=== PATIENT | female | born 1945 | race Caucasian/White ===

== ENCOUNTER 2023-07-12 12:31 | Outpatient (OUT) | payer MEDICARE, OTHER, SELFPAY ==
[2023-07-12 13:04] LABS: Alanine Aminotransferase 20 U/L (14-59); Albumin Globulin Ratio 0.9; Albumin Level 3.3 g/dL (3.4-5.0); Alkaline Phosphatase 76 U/L (46-116); Anion Gap 17.3; Aspartate Amino Transferase 21 U/L (15-37); BUN Creatinine Ratio 14.7; Bilirubin Total 0.5 mg/dL (0.2-1.0); Calcium 9.3 mg/dL (8.5-10.1); Carbon Dioxide 19.4 mmol/L (21.0-32.0); Chloride 102 mmol/L (98-107); Cholesterol 237 mg/dL (<=200); Estimated GFR (African America 41 (>=60); Estimated GFR (Non-African Ame 34 (>=60); Globulin 3.8 g/dL; Glucose 111 mg/dL (74-106); HDL Cholesterol 59 mg/dL (40-60); Potassium 4.7 mmol/L (3.5-5.1); Sodium 134 mmol/L (136-145); Total Protein 7.1 g/dL (6.4-8.2); Triglycerides 125 mg/dL (<=150)
== END 2023-07-12 12:32 | disposition home or self-care (01) ==
LOC: LAB 12:31
PROVIDERS: Visit Provider Internal Medicine
DX: I25.10 Atherosclerotic heart disease of native coronary artery without angina pectoris (principal); E78.00 Pure hypercholesterolemia, unspecified
CPT/HCPCS: 36415; 80053; 80061

== ENCOUNTER 2023-10-31 20:21 | Emergency (ER) | payer OTHER, MEDICARE, SELFPAY ==
[2023-10-31 20:27] VITALS: BP 164/47; PULSE 67; RESP 20; TEMP 36.8; O2SAT 96; BMI 35.4
--- NOTE | 2023-10-31 20:32 | CT_ITS ---
The [address] [address] Patient Name: BROOKLYN GERARDO MRN: [facility]:[id number] date: 1945 Sex: F Assigned Patient Location: ER Current Patient Location: ER Accession/Order Number: [id number] Exam Date: 10/31/2023 20:45 Report Date: 10/31/2023 21:29 At the request of: JOSHUA DALTON Procedure: CT cervical spine wo con EXAM: CT head/brain wo con, CT cervical spine wo con HISTORY: head injury COMPARISON: Head CT 07/23/2020 TECHNIQUE: Unenhanced axial CT of the head and neck was performed with coronal and sagittal reformats provided. All CT scans at this facility use dose modulation, iterative reconstruction, and/or weight based dosing when appropriate to reduce radiation dose to as low as reasonably achievable. FINDINGS: Head: Sequelae of mild chronic microvascular ischemic disease. No hydrocephalus, midline shift, extra-axial fluid collection or intracranial hemorrhage. Incidental note of intracranial vascular calcification. The mastoids and middle ears are clear. Orbits are intact. Paranasal sinuses are clear. Calvarium, skull base and osseous structures of the imaged face are intact. Scalp soft tissues are preserved. Cervical spine: Craniocervical junction is maintained. Vertebral body heights are preserved. No significant spondylolisthesis. No acute fracture. Multilevel degenerative disc disease throughout the cervical spine there is mild narrowing at C5-C6 secondary to disc osteophyte complex with severe left foraminal narrowing secondary to uncovertebral joint osteophytosis. Paraspinal soft tissues are within normal limits. Lung apices are clear. CT/CT cervical spine wo con IMPRESSION: No acute intracranial process. No acute osseous abnormality of the cervical spine. Electronically authenticated by: ROMMEL NUNES Date: 10/31/2023 21:29
--- NOTE | 2023-10-31 20:32 | ECG_ITS ---
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
--- NOTE | 2023-10-31 20:32 | CT_ITS ---
The [address] [address] Patient Name: BROOKLYN GERARDO MRN: [facility]:[id number] date: 1945 Sex: F Assigned Patient Location: ED.MAIN Current Patient Location: Accession/Order Number: [id number] Exam Date: 10/31/2023 20:45 Report Date: 10/31/2023 21:29 At the request of: JOSHUA DALTON Procedure: CT head/brain wo con EXAM: CT head/brain wo con, CT cervical spine wo con HISTORY: head injury COMPARISON: Head CT 07/23/2020 TECHNIQUE: Unenhanced axial CT of the head and neck was performed with coronal and sagittal reformats provided. All CT scans at this facility use dose modulation, iterative reconstruction, and/or weight based dosing when appropriate to reduce radiation dose to as low as reasonably achievable. FINDINGS: Head: Sequelae of mild chronic microvascular ischemic disease. No hydrocephalus, midline shift, extra-axial fluid collection or intracranial hemorrhage. Incidental note of intracranial vascular calcification. The mastoids and middle ears are clear. Orbits are intact. Paranasal sinuses are clear. Calvarium, skull base and osseous structures of the imaged face are intact. Scalp soft tissues are preserved. Cervical spine: Craniocervical junction is maintained. Vertebral body heights are preserved. No significant spondylolisthesis. No acute fracture. Multilevel degenerative disc disease throughout the cervical spine there is mild narrowing at C5-C6 secondary to disc osteophyte complex with severe left foraminal narrowing secondary to uncovertebral joint osteophytosis. Paraspinal soft tissues are within normal limits. Lung apices are clear. CT/CT head/brain wo con IMPRESSION: No acute intracranial process. No acute osseous abnormality of the cervical spine. Electronically authenticated by: ROMMEL NUNES Date: 10/31/2023 21:29
--- NOTE | 2023-10-31 20:37 | ED.GENADUL1 ---
Documented by User: STACEY Carl 10/31/23 20:46 HPI - General Adult General Chief complaint: Fall Stated complaint: FELL BUMPED HEAD Time Seen by Provider: 10/31/23 20:24 Source: patient Mode of arrival: walk-in Limitations: no limitations History of Present Illness HPI narrative: patient is a 78-year-old female presents to the Emergency Room from work for evaluation of head injury. Patient takes baby aspirin daily. 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 She denies any nausea or vomiting. She denies any visual disturbance. Her chief concern is that she had a head injury in the spring time that resulted in a blood brain bleed which required observation. She's had chronic headaches since. Patient denies any neck pain or loss of consciousness. She denies any chest pain or shortness of breath.sclerae oriented ?4 with a GCS of fifteen, her shift today was to end at 10 pm. Son brought pt to ER from work. Location: Reports head (right parietal) Radiation: Denies non-radiation Severity: mild Quality: Reports aching; Denies burning or stabbing Pain Consistency: Reports constant Treatments prior to arrival: Reports none Related Data Home Medications Medication Instructions Recorded Confirmed aspirin 81 mg tablet,delayed 81 mg PO DAILY 10/31/23 10/31/23 release (Adult Aspirin Regimen) atorvastatin 80 mg tablet 80 mg PO DAILY 10/31/23 10/31/23 ezetimibe 10 mg tablet 10 mg PO DAILY 10/31/23 10/31/23 fluoxetine 20 mg capsule 20 mg PO DAILY 10/31/23 10/31/23 gabapentin 300 mg capsule 300 mg PO Q8H 10/31/23 10/31/23 isosorbide mononitrate 30 mg 30 mg PO DAILY 10/31/23 10/31/23 tablet,extended release 24 hr levothyroxine 50 mcg tablet 50 mcg PO DAILY 10/31/23 10/31/23 (Synthroid) metoprolol succinate 25 mg 25 mg PO DAILY 10/31/23 10/31/23 tablet,extended release 24 hr omeprazole 40 mg capsule,delayed 40 mg PO DAILY 10/31/23 10/31/23 release oxycodone-acetaminophen 5 mg-325 1 tab PO DAILY 10/31/23 10/31/23 mg tablet quetiapine 25 mg tablet 25 mg PO DAILY 10/31/23 10/31/23 Allergies Allergy/AdvReac Type Severity Reaction Status Date / Time acetaminophen [From [place]] AdvReac Verified 10/31/23 20:35 clarithromycin [From Biaxin] AdvReac Nausea Verified 10/31/23 20:35 clindamycin AdvReac Verified 10/31/23 20:35 hydrocodone [From [place]] AdvReac Verified 10/31/23 20:35 meperidine [From Demerol] AdvReac Verified 10/31/23 20:35 Review of Systems ROS Constitutional Denies: fever or chills Eyes Denies: change in vision or blurry vision Ears, nose, mouth, and throat Denies: throat pain or neck pain Cardiovascular Denies: chest pain or palpitations Respiratory Denies: shortness of breath or cough Gastrointestinal Denies: abdominal pain, nausea or vomiting Musculoskeletal Denies: back pain, neck pain or extremity pain Integumentary/Breast Denies: rash Neurological Reports: headache; Denies: numbness in extremities or weakness in extremities Psychiatric Denies: anxiety Endocrine Denies: excessive urination Hematologic/Lymphatic Denies: easy bruising PFSH PFSH Social History Smoking status: Former smoker Exam Narrative Exam Narrative: Vital signs and nurses notes reviewed. The patient is not hypoxic. General: The patient appears well and in no apparent distress. Patient is resting comfortably on cart. Skin: Warm, dry, no pallor noted. The patient has no evidence of rash, petechiae, or purpura noted. Head: Normocephalic, atraumatic,positive right parietal tenderness. No scalp laceration Neck: Supple, trachea mid-line, no tenderness, no lymphadenopathy. No meningeal signs. No nuchal rigidity. Eye: Pupils are equal, round and reactive to light, EOMI slight symmetric pytosis bilateral lids Ears, Nose, Mouth, and Throat: Oral mucosa is moist, TMs are clear bilaterally, no hemotympanum noted. Cardiovascular: Regular Rate and Rhythm Respiratory: Patient is in no distress, no accessory muscle use, lungs are clear to auscultation, no wheezing, rales or rhonchi Back: non-tender, no CVA tenderness Musculoskeletal: normal ROM, no tenderness, no swelling, normal strength 5/5. Normal pulses to radial 2+ bilaterally and 2+ at DP and PT bilaterally and symmetrically. GI: Normal bowel sounds, no tenderness to palpation, no masses appreciated. No rebound, guarding, or rigidity noted. Neurological: A&O x4, normal equal stars specialist strength, The patient is not ataxic. The patient has normal speech. The patient has normal coordination. . Normal motor and sensory observed. Psychiatric: Cooperative Constitutional Vital Signs, click to edit/add: Last Vital Signs Temp 98.2 F 10/31/23 20:27 Pulse 67 10/31/23 20:27 Resp 20 10/31/23 20:27 BP 164/47 H 10/31/23 20:27 Pulse Ox 96 10/31/23 20:27 O2 Del Method Room Air 10/31/23 20:27 Course Vital Signs Vital signs: Vital Signs Temperature 98.2 F 10/31/23 20:27 Pulse Rate 67 10/31/23 20:27 Respiratory Rate 20 10/31/23 20:27 Blood Pressure 164/47 H 10/31/23 20:27 Pulse Oximetry 96 10/31/23 20:27 Oxygen Delivery Method Room Air 10/31/23 20:27 Temperature 98.2 F 10/31/23 20:27 Pulse Rate 67 10/31/23 20:27 Respiratory Rate 20 10/31/23 20:27 Blood Pressure 164/47 H 10/31/23 20:27 Pulse Oximetry 96 10/31/23 20:27 Oxygen Delivery Method Room Air 10/31/23 20:27 Medical Decision Making MDM Narrative Medical decision making narrative: patient presents with prior history of intracranial bleed, concerned with head injury this evening. She denies loss of consciousness. She is no longer on blood thinner from previous but does take aspirin. She denies any chest pain or shortness of breath. Patient was at work when her fall occurred reaching for medication and fall on the ground. Patient agreeable to CT of the head and neck for evaluation. EKG performed discussed at bedside. Verbal and written closed head injury instructions discussed The patient is to followup with primary care physician in next 2-3 days or to return to the emergency department should any of the signs or symptoms worsen or new symptoms develop. Patient had questions answered. The patient agrees with the following Diagnosis and Treatment plan and the patient will be discharged home. ECG Data Attestation: I personally reviewed and interpreted this ECG as follows: Interpretation: EKG interpretation: Emergency Department physician interpretation, normal sinus bradycardia 55bpm., no ectopy, no ST segment elevation, normal axis. Discharge Plan Discharge Chief Complaint: Fall Clinical Impression: Closed head injury Patient Disposition: Home, Self-Care Time of Disposition Decision: 21:45 Condition: Good Prescriptions / Home Meds: No Action atorvastatin 80 mg tablet 80 mg PO DAILY ezetimibe 10 mg tablet 10 mg PO DAILY fluoxetine 20 mg capsule 20 mg PO DAILY gabapentin 300 mg capsule 300 mg PO Q8H isosorbide mononitrate 30 mg tablet extended release 24 hr 30 mg PO DAILY levothyroxine [Synthroid] 50 mcg tablet 50 mcg PO DAILY metoprolol succinate 25 mg tablet extended release 24 hr 25 mg PO DAILY omeprazole 40 mg capsule,delayed release(DR/EC) 40 mg PO DAILY oxycodone-acetaminophen 5-325 mg tablet 1 tab PO DAILY quetiapine 25 mg tablet 25 mg PO DAILY aspirin [Adult Aspirin Regimen] 81 mg tablet,delayed release (DR/EC) 81 mg PO DAILY Instructions: Head Injury (ED) Stand Alone Forms: Portal Instructions Referrals: Physician,Non-Staff, MD [Primary Care Provider] - As soon as possible Documented by User: Regina Minaya MD 10/31/23 21:48 HPI - General Adult General Chief complaint: Fall Stated complaint: FELL BUMPED HEAD Time Seen by Provider: 10/31/23 20:24 Related Data Home Medications Medication Instructions Recorded Confirmed aspirin 81 mg tablet,delayed 81 mg PO DAILY 10/31/23 10/31/23 release (Adult Aspirin Regimen) atorvastatin 80 mg tablet 80 mg PO DAILY 10/31/23 10/31/23 ezetimibe 10 mg tablet 10 mg PO DAILY 10/31/23 10/31/23 fluoxetine 20 mg capsule 20 mg PO DAILY 10/31/23 10/31/23 gabapentin 300 mg capsule 300 mg PO Q8H 10/31/23 10/31/23 isosorbide mononitrate 30 mg 30 mg PO DAILY 10/31/23 10/31/23 tablet,extended release 24 hr levothyroxine 50 mcg tablet 50 mcg PO DAILY 10/31/23 10/31/23 (Synthroid) metoprolol succinate 25 mg 25 mg PO DAILY 10/31/23 10/31/23 tablet,extended release 24 hr omeprazole 40 mg capsule,delayed 40 mg PO DAILY 10/31/23 10/31/23 release oxycodone-acetaminophen 5 mg-325 1 tab PO DAILY 10/31/23 10/31/23 mg tablet quetiapine 25 mg tablet 25 mg PO DAILY 10/31/23 10/31/23 Allergies Allergy/AdvReac Type Severity Reaction Status Date / Time acetaminophen [From [place]] AdvReac Verified 10/31/23 20:35 clarithromycin [From Biaxin] AdvReac Nausea Verified 10/31/23 20:35 clindamycin AdvReac Verified 10/31/23 20:35 hydrocodone [From [place]] AdvReac Verified 10/31/23 20:35 meperidine [From Demerol] AdvReac Verified 10/31/23 20:35 PFSH PFSH Social History Smoking status: Former smoker Exam Constitutional Vital Signs, click to edit/add: Last Vital Signs Temp 98.2 F 10/31/23 20:27 Pulse 67 10/31/23 20:27 Resp 20 10/31/23 20:27 BP 164/47 H 10/31/23 20:27 Pulse Ox 96 10/31/23 20:27 O2 Del Method Room Air 10/31/23 20:27 Course Vital Signs Vital signs: Vital Signs Temperature 98.2 F 10/31/23 20:27 Pulse Rate 67 10/31/23 20:27 Respiratory Rate 20 10/31/23 20:27 Blood Pressure 164/47 H 10/31/23 20:27 Pulse Oximetry 96 10/31/23 20:27 Oxygen Delivery Method Room Air 10/31/23 20:27 Temperature 98.2 F 10/31/23 20:27 Pulse Rate 67 10/31/23 20:27 Respiratory Rate 20 10/31/23 20:27 Blood Pressure 164/47 H 10/31/23 20:27 Pulse Oximetry 96 10/31/23 20:27 Oxygen Delivery Method Room Air 10/31/23 20:27 Medical Decision Making MDM Narrative Medical decision making narrative: patient presents with prior history of intracranial bleed, concerned with head injury this evening. She denies loss of consciousness. She is no longer on blood thinner from previous but does take aspirin. She denies any chest pain or shortness of breath. Patient was at work when her fall occurred reaching for medication and fall on the ground. Patient agreeable to CT of the head and neck for evaluation. EKG performed discussed at bedside. Verbal and written closed head injury instructions discussed The patient is to followup with primary care physician in next 2-3 days or to return to the emergency department should any of the signs or symptoms worsen or new symptoms develop. Patient had questions answered. The patient agrees with the following Diagnosis and Treatment plan and the patient will be discharged home. 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 She had a fall at work. Her neuro exam is normal. She has had an intracranial bleed in the past. She is well-appearing in the emergency department. Her blood pressure is mildly elevated. Her exam was normal. CT scan of the head and neck are negative for acute findings but do show chronic changes. The patient does not have any neck pain or radicular symptoms related to the C5-C6 foraminal narrowing and osteophyte complex noted on her CT scan. She does live with her daughter and will be going home with her daughter sola. Occupational health paperwork was filled out by the PA. She is otherwise hemodynamically and neurologically stable for discharge. Medical Records Medical records narrative: [place] [address] CT Scan Report Signed Patient: BROOKLYN GERARDO MR#: [id number] : 1945 Acct:[id number] Age/Sex: 78 / F ADM Date: 10/31/23 Loc: ER Attending Dr: Ordering Physician: Joshua Lane Date of Service: 10/31/23 Procedure(s): CT cervical spine wo con Accession Number(s): [id number] cc: Physician,Non-Staff Ever~ The [place] [id number] Patient Name: BROOKLYN GERARDO MRN: [facility]:[id number] date: 1945 Sex: F Assigned Patient Location: ER Current Patient Location: ER Accession/Order Number: [id number] Exam Date: 10/31/2023 20:45 Report Date: 10/31/2023 21:29 At the request of: JOSHUA LANE Procedure: CT cervical spine wo con EXAM: CT head/brain wo con, CT cervical spine wo con HISTORY: head injury COMPARISON: Head CT 07/23/2020 TECHNIQUE: Unenhanced axial CT of the head and neck was performed with coronal and sagittal reformats provided. All CT scans at this facility use dose modulation, iterative reconstruction, and/or weight based dosing when appropriate to reduce radiation dose to as low as reasonably achievable. FINDINGS: Head: Sequelae of mild chronic microvascular ischemic disease. No hydrocephalus, midline shift, extra-axial fluid collection or intracranial hemorrhage. Incidental note of intracranial vascular calcification. The mastoids and middle ears are clear. Orbits are intact. Paranasal sinuses are clear. Calvarium, skull base and osseous structures of the imaged face are intact. Scalp soft tissues are preserved. Cervical spine: Craniocervical junction is maintained. Vertebral body heights are preserved. No significant spondylolisthesis. No acute fracture. Multilevel degenerative disc disease throughout the cervical spine there is mild narrowing at C5-C6 secondary to disc osteophyte complex with severe left foraminal narrowing secondary to uncovertebral joint osteophytosis. Paraspinal soft tissues are within normal limits. Lung apices are clear. CT/CT cervical spine wo con IMPRESSION: No acute intracranial process. No acute osseous abnormality of the cervical spine. Electronically authenticated by: ROMMEL NUNES Date: 10/31/2023 21:29 Discharge Plan Discharge Chief Complaint: Fall Clinical Impression: Closed head injury Patient Disposition: Home, Self-Care Time of Disposition Decision: 21:45 Condition: Good Prescriptions / Home Meds: No Action atorvastatin 80 mg tablet 80 mg PO DAILY ezetimibe 10 mg tablet 10 mg PO DAILY fluoxetine 20 mg capsule 20 mg PO DAILY gabapentin 300 mg capsule 300 mg PO Q8H isosorbide mononitrate 30 mg tablet extended release 24 hr 30 mg PO DAILY levothyroxine [Synthroid] 50 mcg tablet 50 mcg PO DAILY metoprolol succinate 25 mg tablet extended release 24 hr 25 mg PO DAILY omeprazole 40 mg capsule,delayed release(DR/EC) 40 mg PO DAILY oxycodone-acetaminophen 5-325 mg tablet 1 tab PO DAILY quetiapine 25 mg tablet 25 mg PO DAILY aspirin [Adult Aspirin Regimen] 81 mg tablet,delayed release (DR/EC) 81 mg PO DAILY Instructions: Head Injury (ED) Stand Alone Forms: Portal Instructions Referrals: Physician,Non-Staff, MD [Primary Care Provider] - As soon as possible
== END 2023-10-31 21:56 | disposition home or self-care (01) ==
PROVIDERS: Emergency Provider Emergency Medicine
DX: S09.8XXA Other specified injuries of head, initial encounter (principal); W19.XXXA Unspecified fall, initial encounter
CPT/HCPCS: 70450; 72125; 93005; 99285

== ENCOUNTER 2024-12-19 11:47 | Emergency (ER) | payer OTHER, SELFPAY ==
[2024-12-19 11:53] VITALS: BP 106/59; PULSE 70; TEMP 36.7; O2SAT 98; BMI 34.5
--- OUTSIDE RECORDS SUMMARY | 2024-12-19 12:02 | XMS_ITS | CCD ---
Author Organization [facility] Care Team Providers Care Component Assembler Supervisor Name Role Phone KEITH HAGEN Unavailable Unavailable MUMMERT, GRACIA W Unavailable Unavailable MISC, DR VELOZ Attending Unavailable MISC, DR VELOZ Consulting Unavailable MISC, DR VELOZ Primary Care Unavailable MISC, DR VELOZ Admitting Unavailable ZIEBER, DR RAFAEL Goldstein Consulting Unavailable Mummert DO, Gracia Primary Care Provider Mummert, DO Gracia Primary Care Provider KERA Barrientso Attending Provider LETY BARRIENTOS Attending Unavailable VERHOFFVIDAL Attending Unavailable MUMMERT, GRACIA Referring Unavailable MUMMERT, GRACIA Primary Care Unavailable VERHOFFVIDAL Referring Unavailable MUMMERT, GRACIA Primary Care Unavailable VERHOFFVIDAL Attending Unavailable MUMMERT, GRACIA Referring Unavailable MUMMERT, GRACIA Primary Care Unavailable ESPINOSA, MARK E Admitting Unavailable ESPINOSA, MARK E Attending Unavailable MUMMERT, GRACIA Referring Unavailable MUMMERT, GRACIA Primary Care Unavailable ESPINOSA, MARK E Attending Unavailable ESPINOSA, MARK E Referring Unavailable MUMMERT, GRACIA Primary Care Unavailable DROWNSUZAN Attending Unavailable MUMMERT, GRACIA Primary Care Unavailable ESPINOSA, MARK E Attending Unavailable ESPINOSA, MARK E Referring Unavailable MUMMERT, GRACIA Primary Care Unavailable ESPINOSA, MARK E Admitting Unavailable ESPINOSA, MARK E Attending Unavailable MUMMERT, GRACIA Referring Unavailable MUMMERT, GRACIA Primary Care Unavailable DROWNSUZAN Attending Unavailable MUMMERT, GRACIA Primary Care Unavailable VERHOFFVIDAL N Attending Unavailable MUMMERT, GRACIA Referring Unavailable MUMMERT, GRACIA Primary Care Unavailable Mummert DO, Gracia Primary Care Provider Mummert DO, Gracia Primary Care Provider Ly DO, Diana L Attending Provider Mummert DO, Gracia Primary Care Unavailable Mummert DO, Gracia Attending Unavailable Mummert DO, Gracia Primary Care Unavailable Mummert DO, Gracia Attending Unavailable Mummert DO, Gracia Primary Care Unavailable Mummert DO, Gracia Attending Unavailable Mummert DO, Gracia Primary Care Unavailable Mummert DO, Gracia Attending Unavailable Mummert DO, Gracia Attending Unavailable Mummert DO, Gracia Primary Care Unavailable Ly, Diana L Admitting Unavailable Mummert, Gracia Primary Care Unavailable Ly, Diana L Attending Unavailable Ly, Diana L Admitting Unavailable Mummert, Gracia Primary Care Unavailable Ly, Diana L Attending Unavailable Barrientos, Lety E Attending Unavailable Barrientos, Lety E Admitting Unavailable Mummert, Gracia Primary Care Unavailable Allergies Allergy Classification Reported Allergen(s) Allergy Type Date of Onset Reaction(s) Facility (9 sources) acetaminophen / HYDROcodone; Translations: [HYDROCODONE-ACET AMINOPHEN] [facility] clarith[facility]; Translations: [CLARITHROMYCIN] Drug Allergy 7 Nausea [facility] Repository (12 sources) clindamycin; Translations: [CLINDAMYCIN] Drug Allergy 7 AOF, c-diff [facility] Repository (1 source) meperidine; Translations: [MEPERIDINE (PF)] [facility] Acetaminophen / HYDROcodone Drug Allergy 4 [facility] Repository (2 sources) Clarithromycin; Translations: [Biaxin] Drug Allergy 4 [facility] Repository (1 source) Meperidine Drug Allergy 4 [facility] Repository (12 sources) Meperidine; Translations: [MEPERIDINE] Drug Allergy 8 Dermatitis [facility] (4 sources) Acetaminophen; Translations: [acetaminophen] Drug Allergy 5 Unknown Reaction [facility] (4 sources) HYDROcodone; Translations: [hydrocodone] Drug Allergy 5 Unknown Reaction [facility] (1 source) Acetaminophen / HYDROcodone; Translations: [acetaminophen-HY DROcodone] Drug Allergy [facility] Repository (1 source) Meperidine Drug Allergy 5 [facility] Repository Medications Current Medications Medication Drug Class(es) Dates Sig (Normalized) Sig (Original) Acetaminophen / oxyCODONE (14 sources) Opioid Agonist Start: 11-23-2024 oxycodone-acetamin ophen Active 1 TAB PO As Directed as needed for pain November 23, 2024 12:00am Start: 11-23-2024 oxycodone-acet aminophen (Percocet) Active PO as needed November 23, 2024 12:00am Start: 2024 End: 10-16-2024 take 1 tablet by mouth once daily as needed for pain oxyCODONE-acetaminophen (PERCOCET) 5-325 mg per tablet Indications: Lumbar stenosis without neurogenic claudication Take 1 tablet by mouth daily as needed for pain. Max Daily Amount: 1 tablet 30 tablet 10/17/2024 Active Start: 11-04-2023 End: 01-19-2024 take 1 tablet by mouth once daily as needed for pain oxyCODONE-acetaminophen (PERCOCET) 5-325 mg per tablet Indications: Lumbar stenosis without neurogenic claudication Take 1 tablet by mouth daily as needed for pain. Max Daily Amount: 1 tablet 30 tablet 0 01/19/2024 Active aspirin 81 mg chewable tablet (10 sources) Platelet Aggregation Inhibitor, Nonsteroidal Anti-inflammatory Drug Start: 11-23-2024 take 1 tablet by mouth once daily Aspirin 81 mg tablet,chewable Active 81 MG PO Daily November 23, 2024 12:00am take 1 tablet by mouth in the mo rning aspirin 81 mg chewable tablet Take 1 tablet (81 mg total) by mouth in the morning. Active atorvastatin 80 mg oral tablet (10 sources) HMG-CoA Reductase Inhibitor Start: 11-23-2024 take 80 mg by mouth once daily atorvastatin Active 80 MG PO Daily November 23, 2024 12:00am Start: 11-23-2024 atorvastatin A ctive PO November 23, 2024 12:00am take 1 tablet by diego th once daily atorvastatin (LIPITOR) 80 mg tablet Take 1 tablet (80 mg total) by mouth nightly. Active busPIRone hydrochloride 5 mg oral tablet (7 sources) take 1 tablet by mouth three times daily busPIRone (BUSPAR) 5 mg tablet Take 1 tablet (5 mg total) by mouth 3 (three) times a day. Active calcium carbonate 1500 mg / cholecalciferol 200 unt oral tablet (7 sources) Vitamin D take 1 tablet by mouth once in the morning calcium carbonate-vitamin D3 600 mg(1,500mg) -200 units per tablet Take 1 tablet by mouth in the morning. Active ezetimibe 10 mg oral tablet (7 sources) Dietary Cholesterol Absorption Inhibitor Start: 07-04-20 ezetimibe (ZETIA) 10 mg tablet daily. 07/04/2019 Active FLUoxetine 20 mg oral tablet (10 sources) Serotonin Reuptake Inhibitor Start: 11-23-19 take 20 mg by mouth twice daily fluoxetine Active 20 MG PO Twice daily November 23, 2024 12:00am Start: 11-23-2024 fluoxetine (Pr ozac) Active PO November 23, 2024 12:00am take 1 capsule by mo [facility] in the morning, then take 1 capsule by mouth at bedtime FLUoxetine (PROzac) 20 mg capsule Take 1 capsule (20 mg total) by mouth in the morning and 1 capsule (20 mg total) before bedtime. Active furosemide 20 mg oral tablet (7 sources) Loop Diuretic Start: 09-01-2021 furosemide (LA SIX) 20 mg tablet Indications: edema as needed Indications: visible water retention. 09/01/2021 Active gabapentin 300 mg oral capsule (12 sources) Anti-epileptic Agent Start: 11-23-2024 take 1 capsule by mouth twice daily Gabapentin 300 mg capsule Active 300 MG PO Twice daily November 23, 2024 12:00am Start: 08-02-2024 End: 10-16-2024 take 1 capsule by mouth three times daily gabapentin (NEURONTIN) 300 mg capsule Indications: Lumbar stenosis without neurogenic claudication Take 1 capsule (300 mg total) by mouth 3 (three) times a day. 270 capsule 10/17/2024 Active Start: 11-04-2023 End: 01-27-2024 take 1 capsule by mouth three times daily gabapentin (NEURONTIN) 300 mg capsule Indications: Lumbar stenosis without neurogenic claudication Take 1 capsule (300 mg total) by mouth 3 (three) times a day. 270 capsule 0 01/27/2024 Active Isosorbide (10 sources) Nitrate Vasodilator Start: 11-23-2024 take 1 tablet by mouth once daily isosorbide mononitrate Active 1 TAB PO Daily November 23, 2024 12:00am Start: 11-23-2024 isosorbide mon onitrate (Imdur) Active PO November 23, 2024 12:00am take 1 tablet by diego th once daily isosorbide mononitrate (IMDUR) 30 mg 24 hr tablet Take 1 tablet (30 mg total) by mouth daily. Active levothyroxine (9 sources) l-Thyroxine Start: 11-28-2024 take 1 tablet by mouth once daily levothyroxine Active 1 TAB PO Daily November 28, 2024 12:00am Start: 12-23-2017 take 1 tablet by diego th in the morning levothyroxine (SYNTHROID, LEVOTHROID) 50 MCG tablet Take 1 tablet (50 mcg total) by mouth in the morning. 12/23/2017 Active metoprolol tartrate 50 mg oral tablet (10 sources) beta-Adrenergic Stefano Start: 11-23-2024 take 50 mg by mouth once daily metoprolol succinate Active 50 MG PO Daily November 23, 2024 12:00am Start: 11-23-2024 metoprolol suc cinate Active PO November 23, 2024 12:00am Start: 04-22-2023 metoprolol suc cinate XL (TOPROL XL) 25 mg 24 hr tablet 1 tablet (25 mg total) in the morning. 04/22/2023 Active nitroglycerin 0.4 mg sublingual tablet (7 sources) Nitrate Vasodilator Start: 08-25-2020 nitroglycerin (NITROSTAT) 0.[address] 1 tablet (0.4 mg total) under the tongue every 5 (five) minutes as needed for chest pain. 90 tablet 12 08/25/2020 Active omeprazole 40 mg oral tablet (10 sources) Proton Pump Inhibitor Start: 11-23-2024 take 40 mg by mouth once daily omeprazole Active 40 MG PO Daily November 23, 2024 12:00am Start: 11-23-2024 omeprazole Act mirna PO November 23, 2024 12:00am take 1 capsule by mo uth in the morning omeprazole (PriLOSEC) 40 mg capsule Take 1 capsule (40 mg total) by mouth in the morning. Active QUEtiapine 25 mg oral tablet (4 sources) Atypical Antipsychotic Start: 03-30-2019 QUEtiap ine (SEROquel) 25 mg tablet nightly. 0 03/30/2019 Active Problems Active Problems Problem Classification Problem Date Documented Da te Episodic/Chronic Coronary atherosclerosis and other heart disease (20 sources) Preinfarction syndrome; Translations: [Unstable angina] Onset: 08-22-2020 08-22-2020 Chronic Disorders of lipid metabolism (7 sources) Hyperlipidemia; Translations: [Other hyperlipidemia] Onset: 08-22-2019 08-22-2019 Chronic Essential hypertension (3 sources) Hypertensive disorder; Translations: [Essential (primary) hypertension] 11-23-2024 Chronic Occlusion or stenosis of precerebral arteries (11 sources) Occlusion and stenosis of bilateral carotid arteries; Translations: [Bilateral stenosis of carotid arteries] Onset: 08-22-2019 Chronic Osteoarthritis (14 sources) Primary coxarthrosis, bilateral; Translations: [Bilateral primary osteoarthritis of hip] Onset: 10-06-2018 02-08-2023 Chronic Other aftercare (5 sources) Admission statuses; Translations: [[facility] (current) use of opiate analgesic] Onset: 05-12-2023 05-12-2023 Episodic Other aftercare (4 sources) Patient encounter status; Translations: [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] Onset: 05-12-2023 05-12-2023 Episodic Other connective tissue disease (8 sources) Bilateral trochanteric bursitis; Translations: [Trochanteric bursitis, right hip] Onset: 07-15-2022 07-15-2022 Episodic Other gastrointestinal disorders (2 sources) Dysphagia; Translations: [Dysphagia, unspecified] 11-23-2024 Episodic Other gastrointestinal disorders (3 sources) Dysphagia, unspecified; Translations: [Dysphagia, unspecified] Onset: 12-07-2024 11-23-2024 Episodic Other gastrointestinal disorders (1 source) Personal history of other diseases of the digestive system; Translations: [Personal history of other diseases of the digestive system] Onset: 12-12-2024 Episodic Other nervous system disorders (1 source) Mononeuropathy of lower limb; Translations: [Unspecified mononeuropathy of bilateral lower limbs] 02-02-2024 Chronic Other nervous system disorders (1 source) Unspecified mononeuropathy of bilateral lower limbs; Translations: [Unspecified mononeuropathy of bilateral lower limbs] Onset: 02-02-2024 Chronic Residual codes; unclassified (3 sources) History of hernia repair; Translations: [Other specified postprocedural states] 11-23-2024 Episodic Residual codes; unclassified (3 sources) Other specified postprocedural states; Translations: [Personal history of surgery to other organs] Onset: 12-12-2024 11-23-2024 Episodic Spondylosis; intervertebral disc disorders; other back problems (20 sources) Lumbosacral spondylosis without myelopathy; Translations: [Spondylosis without myelopathy or radiculopathy, lumbosacral region] Onset: 01-03-2018 02-22-2018 Chronic Spondylosis; intervertebral disc disorders; other back problems (20 sources) Spinal stenosis of lumbar region; Translations: [Spinal stenosis, lumbar region without neurogenic claudication] Onset: 08-21-2019 12-13-2023 Episodic Thyroid disorders (3 sources) Hyperthyroidism; Translations: [Thyrotoxicosis, unspecified without thyrotoxic crisis or storm] 11-23-2024 Chronic Past or Other Problems Problem Classification Problem Date Documented Da te Episodic/Chronic Mood disorders (7 sources) Mood disorders Onset: 08-22-2020 08-22-2020 Other aftercare (1 source) [facility] (current) use of opiate analgesic; Translations: [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] Onset: 05-12-2023 Episodic Other connective tissue disease (7 sources) Swelling of lower limb; Translations: [Other specified soft tissue disorders] Onset: 05-21-2020 05-21-2020 Episodic Other injuries and conditions due to external causes (1 source) Unspecified injury of head, subsequent encounter; Translations: [Unspecified injury of head, subsequent encounter] Onset: 03-21-2024 Episodic Results Test Name Value Interpretation Reference Range Facility FL esophaguson 12-12-2024 FL [facility] [address] [address] Fluoroscopy Report Signed Patient: Celi Gerardo MR#: [id number] : 1945 Acct:[id number] Age/Sex: 79 / F ADM Date: 12/12/24 Loc: XD Room: Type: [facility] Attending Dr: Diana Wiggins DO Copies to: Diana Wiggins DO Ordering Provider: Diana Wiggins DO Date of Service: 12/12/24 FL/FL esophagus: R13.10 - Dysphagia, unspecified DOUBLE CONTRAST ESOPHAGRAM CLINICAL HISTORY: History of Cesilia fundoplication with recurrence of hiatal hernia. COMPARISON: None TECHNIQUE: Double contrast esophagram was performed. Cumulative Air Kerma in mGy: 66.28 mGy FINDINGS: A mild stricture is seen at the level of the GE junction with tertiary contractions involving the distal esophagus. No mass or ulcer is seen involving the esophagus. Moderate-sized hiatal hernia is present. FL/FL esophagus IMPRESSION: A MILD STRICTURE SEEN AT THE LEVEL OF THE GE JUNCTION WITH TERTIARY CONTRACTIONS. THERE IS ASSOCIATED MODERATE SIZE HIATAL HERNIA. NO ESOPHAGEAL MASS OR ULCER. Impression dictated by: Andrés Jenkins Jr., DElmerOElmer12/12/2024 2:35 PM Dictation Location: [place] [address] Transcribed By: [facility] 12/12/24 1435 Dictated By: Andrés Jenkins Jr, DO 12/12/24 1434 Signed By: 12/12/24 1435 Normal [facility] Fluoroscopy reportOrdered By : Andrés Jenkins on 12-12-2024 RF Unspecified body region [facility] [place] [address] Fluoroscopy Report Signed Patient: Celi Gerardo MR#: [id number] : 1945 Acct:[id number] Age/Sex: 79 / F ADM Date: 5 Loc: XD Room: Type: [facility] Attending Dr: Diana Wiggins DO Copies to: Diana Wiggins DO~ Ordering Provider: Diana Wiggins DO Date of Service: 12/12/24 FL/FL esophagus: R13.10 - Dysphagia, unspecified DOUBLE CONTRAST ESOPHAGRAM CLINICAL HISTORY: History of Cesilia fundoplication with recurrence of hiatal hernia. COMPARISON: None TECHNIQUE: Double contrast esophagram was performed. Cumulative Air Kerma in mGy: 66.28 mGy FINDINGS: A mild stricture is seen at the level of the GE junction with tertiary contractions involving the distal esophagus. No mass or ulcer is seen involvingthe esophagus. Moderate-sized hiatal hernia is present. FL/FL esophagus IMPRESSION: A MILD STRICTURE SEEN AT THE LEVEL OF THE GE JUNCTION WITH TERTIARY CONTRACTIONS. THERE IS ASSOCIATED MODERATE SIZE HIATAL HERNIA. NO ESOPHAGEAL MASS OR ULCER. Impression dictated by: Andrés Jenkins Jr., D.O.12/12/2024 2:35 PM Dictation Location: [place] [address] Transcribed By: [facility] 12/12/241434 Dictated By: Andrés Jenkins Jr, DO 12/12/24 143 Signed By: 12/12/24 143 [facility] Consultation/Specialist Note on 12-11-2024 Consultation/Speciali st Note [id number]#1.00OTGTI [facility] Outside Recordson 12-11-2024 Outside Records [id number]#1.00OTGTI [facility] Provider Letteron 12-07-2024 Provider Letter Provider Letter December 07, 2024 CELI GERARDO [address] [place] [id number] : 1945 Dear Celi, We have been trying to reach you with no success. It is important that you return our call regarding your referral from Dr. Villa to see [facility]. Please call the office to schedule a appointment upon receiving this letter. Also, at the time of your call, please provide us with your current information. Thank you for your prompt attention to this matter. Sincerely, [facility] [phone] [facility] Consultation/Specialist Note on 11-27-2024 Consultation/Speciali st Note [id number]#1.00OTGTI [facility] Consultation/Specialist Note on 10-26-2024 Consultation/Speciali st Note [id number]#1.00OTGTI [facility] Consultation/Specialist Note on 08-03-2024 Consultation/Speciali st Note [id number]#1.00OTGTI [facility] Drugs of abuse panel Screen (U)on 08-02-2024 Control Substance Panel, Urine SEE COMMENTS 08/06/2024 10:41 AM Abnormal [facility] Comment on above: Result Comment: NOTE Test Result Flag Unit RefValue -- Controlled Substance Monitoring, U List Patient's Current PERCOCET Medications ADDITIONAL INFORMATION Accuracy and completeness of declared medications on reports solely dependent on information submitted by client. Creatinine, U 94.7 mg/dL Specific [place] 1.009 pH 5.7 Oxidants Negative -- REFERENCE VALUE -- Cutoff: 200 mg/L Comment Normal Barbiturates Negative ng/mL Cutoff: 200 Cocaine Negative ng/mL Cutoff: 150 This cocaine immunoassay targets benzoylecgonine the primary metabolite of cocaine. Tetrahydrocannabinol Negative ng/mL Cutoff: 50 This immunoassay targets delta-9 tetrahydrocannabinol carboxylic acid (THC-COOH), a metabolite of delta-9 tetrahydrocannabinol the main psychoactive ingredient of marijuana. ADDITIONAL INFORMATION This report is intended for use in clinical monitoring or management of patients. It is not intended for use in employment-related testing. Codeine Not Detected ng/mL Cutoff: 25 Tylenol 3 Fhfyall-8-goqh- Not Detected ng/mL Cutoff: 100 glucuronide Metabolite of codeine Morphine Not Detected ng/mL Cutoff: 25 Kisha Collazo, Contin; Also a minor metabolite (10%) of codeine and can be seen in low concentrations (<2,000 ng/mL) with poppy seed ingestion. Ovrcpdxx-2-mtcr- Not Detected ng/mL Cutoff: 100 glucuronide Metabolite of morphine 6-monoacetylmorphine Not Detected ng/mL Cutoff: 25 Metabolite of heroin Hydrocodone Not Detected ng/mL Cutoff: 25 Lortab, [place], Vicodin; Also a very minor metabolite of codeine and impurity (<1%) of oxycodone. Norhydrocodone Not Detected ng/mL Cutoff: 25 Metabolite of hydrocodone Dihydrocodeine Not Detected ng/mL Cutoff: 25 Metabolite of hydrocodone Hydromorphone Not Detected ng/mL Cutoff: 25 Dilaudid, Exalgo; Also a metabolite of hydrocodone and a minor (<5%) metabolite of morphine. Ctcxuuoypmzef-7-jiyz- Not Detected ng/mL Cutoff: 100 glucuronide Metabolite of hydromorphone Oxycodone Present A ng/mL Cutoff: 25 Endocet, Percocet, Oxycontin Noroxycodone Present A ng/mL Cutoff: 25 Metabolite of oxycodone Oxymorphone Not Detected ng/mL Cutoff: 25 Numorphan, Opana; Also a metabolite of oxycodone. Xtnmofktdiz-2-vhgi- Present A ng/mL Cutoff: 100 glucuronide Metabolite of oxymorphone and/or naloxone (nornaloxone) Noroxymorphone Not Detected ng/mL Cutoff: 25 Metabolite of oxymorphone and/or naloxone (nornaloxone) Fentanyl Not Detected ng/mL Cutoff: 2 Actiq, Duragesic, Fentora Norfentanyl Not Detected ng/mL Cutoff: 2 Metabolite of fentanyl Meperidine Not Detected ng/mL Cutoff: 25 Demerol Normeperidine Not Detected ng/mL Cutoff: 25 Metabolite of meperidine Naloxone Not Detected ng/mL Cutoff: 25 Narcan Eujolbob-6-mjaq- Not Detected ng/mL Cutoff: 100 glucuronide Metabolite of naloxone Methadone Not Detected ng/mL Cutoff: 25 Dolophine EDDP Not Detected ng/mL Cutoff: 25 Metabolite of methadone Propoxyphene Not Detected ng/mL Cutoff: 25 Darvon, Darvocet Norpropoxyphene Not Detected ng/mL Cutoff: 25 Metabolite of propoxyphene Tramadol Not Detected ng/mL Cutoff: 25 Tradol, Ultram, Ultracet O-desmethyltramadol Not Detected ng/mL Cutoff: 25 Metabolite of tramadol Tapentadol Not Detected ng/mL Cutoff: 25 Nucynta N-desmethyltapentadol Not Detected ng/mL Cutoff: 50 Metabolite of tapentadol Tapentadol-beta- Not Detected ng/mL Cutoff: 100 glucuronide Metabolite of tapentadol Buprenorphine Not Detected ng/mL Cutoff: 5 Buprenex, Suboxone Norbuprenorphine Not Detected ng/mL Cutoff: 5 Metabolite of buprenorphine Norbuprenorphine Not Detected ng/mL Cutoff: 20 glucuronide Metabolite of buprenorphine Opioid Interpretation See Note Test detected the presence of oxycodone and one of its metabolites (noroxycodone) along with teisxgxezbm-6-iocw-glucuronide (metabolite of oxymorphone). Suspect use of oxycodone and/or oxymorphone within the past three days. ADDITIONAL INFORMATION This test was developed and its performance characteristics determined by [facility] in a manner consistent with CLIA requirements. This test has not been cleared or approved by the U.S. Food and Drug Administration. Alprazolam Not Detected ng/mL Cutoff: 10 Xanax Alpha-Hydroxyalprazolam Not Detected ng/mL Cutoff: 10 Metabolite of Alprazolam Alpha-Hydroxyalprazolam Not Detected ng/mL Cutoff: 50 Glucuronide Metabolite of Alprazolam Chlordiazepoxide Not Detected ng/mL Cutoff: 10 Librium Clobazam Not Detected ng/mL Cutoff: 10 Frisium, Onfi N-Desmethylclobazam Not Detected ng/mL Cutoff: 200 Metabolite of Clobazam Clonazepam Not Detected ng/mL Cutoff: 10 Klonopin, Rivotril 7-aminoclonazepam Not Detected ng/mL Cutoff: 10 (more content not included)... Performed By: #### 6 [id number] #### [facility] ([id number]) [address] [place] [address], [place] [address] Rad - Other Radiology Report on 06-01-2024 Rad - Other Radiology Report [id number]#1.00OTG TIFF Normal [facility] Consultation/Specialist Note on 05-11-2024 Consultation/Speciali st Note [id number]#1.00OTGTIF F Normal [facility] ISTAT XRay CREon 03-21-2024 ISTAT GFR 26.528 Normal [facility] Comment on above: Result Comment: PERF ORMED BY: [place] [address] PATHOLOGIST GATE WATCH HANNAH SENIOR M.D. Performed By: #### I SCRE #### [address] MR head/brain wo conon 03-21 MR head/brain wo con [facility] [place] [address] [place] [address] MRI Report Signed Patient: Celi Gerardo MR#: [id number] : 1945 Acct:[id number] Age/Sex: 78 / F ADM Date: 03/21/24 Loc: [facility] Room: Type: [facility] Attending Dr: Lety COTE Copies to: KERA Cortes Ordering Provider: KERA Cortes Date of Service: 03/21/24 MR/MR head/brain wo con: S09.90XD, R51.9 EXAMINATION: MRI OF THE BRAIN WITHOUT CONTRAST CLINICAL HISTORY: History of persistent headache status post head injury. History of intracranial hemorrhage June 2023. COMPARISON: No prior imaging for direct comparison. TECHNIQUE: Multiecho, multiplanar imaging of the brain was performed without enhancement. FINDINGS: No evidence of restriction diffusion is an diffusion-weighted imaging. No evidence of blood products are seen on gradient echo imaging. Cortical atrophy with mild chronic microvascular ischemic changes are present. Midbrain, cathie, medulla and cerebellum all appear unremarkable. Intraorbital contents appear grossly unremarkable. No air-fluid levels are seen within the visualized paranasal sinuses. Midline structures appear grossly unremarkable. MR/MR head/brain wo con IMPRESSION: NO ACUTE INTRACRANIAL ABNORMALITY. 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 Impression dictated by: Andrés Jenkins Jr., Stacy03/21/2024 2:20 PM Dictation Location: [place] [address] Transcribed By: [facility] 03/21/24 1420 Dictated By: Andrés Jenkins Jr, DO 03/21/24 1417 Signed By: 03/21/24 1420 Normal [facility] No Panel InformationOrdered By: Lety Barrientos on 03-21-2024 Bedside Estimated GFR (eGFR) 26.528 [facility] Whole blood creatinine measu rementOrdered By: Lety Barrientos on 03-21-2024 Creatinine [Mass/Vol] 1.9 mg/dL High 0.6-1.3 [facility] Comment on above: ER/ESD physician is notified/shown all ISTAT results.Critical values may be confirmed by laboratory testing ifdeemed necessary by ER attending doctor. Result Comment: ER/E SD physician is notified/shown all ISTAT results. Critical values may be confirmed by laboratory testing if deemed necessary by ER attending doctor. Performed By: #### I SCRE #### [facility] [address] [place] [address] Consultation/Specialist Note on 02-15-2024 Consultation/Speciali st Note [id number]#[id number] FF Normal [facility] Consultation/Specialist Note on 02-10-2024 Consultation/Speciali st Note [id number]#[id number] IFF Normal [facility] Benzodiazepines Screen Ql (U )on 02-02-2024 Benzodiazepines Ql (U) Negative Negative^Neg ative [facility] Comment on above: Benzodiazepines scre ening cut off value = 200 ng/mL This report is intended for use in clinical monitoring or management of patients. [facility] Benzodiazepines Ql (U) Negative Normal NEG [facility] Comment on above: Result Comment: [place] odiazepines screening cut off value = 200 ng/mL This report is intended for use in clinical monitoring or management of patients. Performed By: #### 1 4316-4, CGO #### [facility] ([id number]) [address] [place] [address] CCL GENERIC ORDERon 02-02-20 TEST NAME UQNTPP QUANT PAIN PANEL Normal P [facility] Comment on above: Performed By: #### 1 4316-4, CGO #### [facility] ([id number]) [address] [place] [address] TEST RESULT See Below Normal [facility] Comment on above: Result Comment: NOTE TEST RESULT FLAG UNIT REF.RANGE ------ Morphine Quant, Urine <10 ng/mL <10 Morphine is a metabolite of codeine and heroin. Oxymorphone Quant, Urine 65 H ng/mL <5 Oxymorphone may arise from oxymorphone containing drugs or by metabolism of oxycodone. Hydromorphone Quant, Urine <5 ng/mL <5 Hydromorphone is a metabolite of hydrocodone. Dihydrocodeine Quant, Urine <5 ng/mL <5 Codeine Quant, Urine <11 ng/mL <11 Amphetamine, Urine <5 ng/mL <5 Desmethyltramadol,Ur <20 ng/mL <20 Desmethyltramadol is a metabolite of tramadol. Benzoylecognine,Ur Qnt <24 ng/mL <24 Benzoylecgonine is a metabolite of cocaine. Oxycodone Quant, Urine 1256 H ng/mL <10 Oxycodone is not a recognized metabolite of other opiates and its presence indicates use of an oxycodone containing drug. Oxycodone is metabolized to oxymorphone. Methamphetamine, Urine <8 ng/mL <8 6-Acetylmorphine Quant, Urine <5 ng/mL <5 6-KRISTOFER (6-monoacetylmorphine, also known as 6-acetylmorphine) is a unique metabolite of heroin. Presence of 6-KRISTOFER indicates use of heroin. 6-KRISTOFER is further metabolized to morphine and absence of 6-KRISTOFER does not rule out the use of heroin. Hydrocodone Quant, Urine <8 ng/mL <8 Hydrocodone is a metabolite of dihydrocodeine. Norfentanyl, Urine <6 ng/mL <6 Norfentanyl is a metabolite of fentanyl. Tramadol, Urine <25 ng/mL <25 Norbuprenorphine, Ur <20 ng/mL <20 Norbuprenorphine is the primary active metabolite of buprenorphine. Cannabinoid, Urine <16 ng/mL <16 Tetrahydrocannabinol carboxylic acid (THCA) is a metabolite of qutqw-8-izfdqavwtxdospnvgtbc which is the main active component of marijuana. Fentanyl, Urine <6 ng/mL <6 Buprenorphine, Ur <20 ng/mL <20 Methadone Urine <16 ng/mL <16 Methadone metabolite Urine <6 ng/mL <6 EDDP is a metabolite of methadone. Note See Below This test is for medical use only. This test was developed and its performance characteristics determined by [facility]'s Viktor Bri [facility] Pathology and Laboratory Medicine [place] ([facility]). It has not been cleared or approved by the FDA. [facility] is regulated under CLIA as qualified to perform high-complexity testing. This test is used for clinical purposes. It should not be regarded as investigational or for research. QUANT PAIN PANEL Specimen Validity Quality See below Specimen quality results within acceptable limits Specimen Validity Creatinine 254.3 mg/dL 20.0-300.0 Specimen Validity PH 5.4 4.5-8.0 Specimen Validity Specific [place] 1.015 1.003-1.035 Specimen Validity Oxidants 147 mg/L <200 Specimen Validity Nitrites 110 mg/L <500 Specimen Validity Chromate <10 mg/L <50 QUANT PAIN PANEL Test Performed By: [facility] [address] [place] [address] School Treasurer: Glenn Chatterjee III, M.D. CLIA #[id number] Performed By: #### 1 4316-4, CGO #### [facility] ([id number]) [address] [place] [address] ART BILon 021 US CAROTID ART OVI EXAMINATION: US STEVENS TID ART OVI HISTORY: Bilateral carotid artery occlusion ; bilateral carotid stenosis COMPARISON: No relevant comparison available. TECHNIQUE: Duplex Doppler ultrasound analysis of carotid and vertebral arteries. . Bilateral carotid arterial duplex examination was performed using B-mode, color flow and spectral analysis. Carotid stenosis is reported according to validated velocity parameters, similar to NASCET criteria. FINDINGS: RIGHT CAROTID ARTERY: Marked atherosclerotic plaque causing moderate-marked narrowing of the bulb and proximal ICA. RIGHT VERTEBRAL: Antegrade flow. Subclavian: PSV: 119.4 cm/s EDV: 12.8 cm/s CCA: Prox: PSV: 91.9 cm/s EDV: 14.9 cm/s Mid: PSV: 70.3 cm/s EDV: 11.9 cm/s Distal: PSV: 53.8 cm/s EDV: 10.4 cm/s BULB: PSV: 65.5 cm/s EDV: 12.7 cm/s ICA: Prox: PSV: 93.0 cm/s EDV: 22.6 cm/s Mid: PSV: 96.5 cm/s EDV: 30.5 cm/s Distal: PSV: EDV: ECA: PSV: 145.1 cm/s EDV: 0.0 cm/s VERTEBRAL: PSV: 27.2 cm/s EDV: 5.3 cm/s ICA/CCA ratio: PSV: 1.4 EDV: 2.6 LEFT CAROTID ARTERY: Moderate-marked atherosclerotic plaque causing marked narrowing of the bulb, and proximal and mid ICA, 73% area reduction of the bulb. LEFT VERTEBRAL: Antegrade flow. Subclavian: PSV: 106.5 cm/s EDV: 11.1 cm/s CCA: Prox: PSV: 75.8 cm/s EDV: 17.6 cm/s Mid: PSV: 72.1 cm/s EDV: 14.9 cm/s Distal: PSV: 56.4 cm/s EDV: 11.9 cm/s BULB: PSV: 57.5 cm/s EDV: 5.1 cm/s ICA: Prox: PSV: 139.7 cm/s EDV: 39.2 cm/s Mid: PSV: 168.7 cm/s EDV: 36.7 cm/s Distal: PSV: 154.9 cm/s EDV: 24.8 cm/s ECA: PSV: 100.8 cm/s EDV: 3.8 cm/s VERTEBRAL: PSV: 56.4 cm/s EDV: 10.1 cm/s ICA/CCA ratio: PSV: 2.3 EDV: 2.5 IMPRESSION: 1. 0-49% flow stenosis within the right carotid artery despite moderate-marked atherosclerotic plaque. 2. 50-69% flow stenosis within the left carotid artery due to marked atherosclerotic plaque within the bulb through mid ICA. Spectral Doppler US Thresholds Stenosis (%) PSV (cm/sec) VICA/VCCA 0-49 <150 <2.5 50-69 150-225 2.5-4.0 >70 >225 >4.0 Electronically authenticated by: RAFAEL LEDEZMA Date: 2021-07-22 17:16 [facility] ([facility] ADITYA GERARDO ([id number]) 1945 FDate Time Provider Department02/14/18 9:45 AM KEITH HAGEN During your visit today, we recorded the following information about you: Pulse Respiration Blood pressure 60/minute 14/minute 126/70Keith Hagen MD 02/14/2018 11:05 AM [facility] Department of Cardiovascular MedicineOUTPATIENT VISIT DATE February 14, 2018OUTPATIENT VISIT TYPEESTABLISHEDPRIMARY CARE PHYSICIAN:KARY Enriquez [place], [place] [address]Fstah: [phone]: [phone] PHYSICIANKARY Enriquez [facility] [id number] COMPLAINT:No chief complaint on file.HISTORY OF PRESENT ILLNESS:Celi Gerardo was referred for consultation by Dr. Villa. Opinions andrecommendations in this consultation will be transmitted back to the referringphysician by [facility] notes or via mail.Ms. Gerardo is a 72 year old female who is seen today for follow up evaluationfor left sided carotid artery stenosis.Denies any neurologic symptoms since last evaluation.Continue to work at [employer].Follow up DUS unchanged from previous study, at which time CTA had shown ~50%left ICA stenosis.Continues on ASA, plavix, statin.Episode of dizziness, visual disturbance described as text on computer screenbeing mixed up and possible slurred speech beginning of November 2016.Attributed to vertigo.Workup included: MRI brain which showed atrophy, MRA head: hypoplastic leftvertebral artery, DUS neck: High grade stenosis of left ICA i/C 3.1, PSV 311,right I/C 1.3, PSV 126.Former smoker, 90 pack years. Right hand dominate.PAST MEDICAL HISTORYDiagnosis Date- C. difficile diarrhea- Carotid stenosis- COPD (chronic obstructive pulmonary disease) (HCC)- Dizziness- Hyperlipidemia- Hypertension- Pulmonary hypertension- VertigoPAST SURGICAL HISTORYProcedure Laterality Date- BACK SURGERY HX- HIATAL HERNIA REPAIR HX- TONSILLECTOMY HX- TUBAL LIGATION HXSOCIAL HISTORYSocial HistorySubstance Use Topics- Smoking status: Former Smoker Packs/day: 3.00 Years: 30.00 Types: Cigarettes- Smokeless tobacco: Never Used- Alcohol use NoNo family history on file.ALLERGIES:ALLERGIESA llergen Reactions- Biaxin [Clarithromy* GI Upset- Clindamycin GI Upset- Demerol [Meperidine* Unknown- Vicodin [Hydrocodon* Mental Status ChangeMEDICATIONS:flutica sone (FLONASE) 50 mcg/actuation nasal spray Use 1 Embarrass in each nostriltwice daily.KRILL OIL ORAL Take 500 mg by mouth once daily.levothyroxine (SYNTHROID) 50 mcg tablet Take 50 mcg by mouth once daily.atorvastatin (LIPITOR) 80 mg tablet Take 80 mg by mouth once daily.CALCIUM CARBONATE/VITAMIN D3 (OS-TANVI 500 + D3 ORAL) Take 1 tablet by mouth oncedaily.FLUoxetine (PROZAC) 20 mg capsule Take 20 mg by mouth once daily.meclizine (ANTIVERT) 12.5 mg tab Take 25 mg by mouth three times daily asneeded.metoprolol tartrate, short acting, (LOPRESSOR) 50 mg tablet Take 50 mg by mouthtwice daily.omeprazole (PRILOSEC) 20 mg capsule Take 20 mg by mouth once daily.aspirin, enteric coated (ADULT LOW DOSE ASPIRIN) 81 mg EC tablet Take 1 tabletby mouth once daily.clopidogrel (PLAVIX) 75 mg tablet Take 1 tablet by mouth once daily.furosemide (LASIX) 20 mg tablet Take 1 tablet by mouth once daily.REVIEW OF SYSTEMS:GENERAL: no acute distressAll other ROS: negativeI personally interviewed, confirmed and edited the above information asobtained by others.PHYSICAL EXAMINATION:BP 126/70 (BP Site: Left Arm, BP Position: Sitting, BP Cuff Size: Large Adult) Pulse 60 Resp 14 SpO2 96%General appearance: well nourished, alert and cooperative individual, in noacute distress.Neck: no bruitsPulmonary: Lungs clear to auscultation bilaterally.Coronary: regular rate and regular rhythmUpper Extremities: palp radial pulses bilaterallyNeuro: Awake, alert, and oriented., Gait normal. Sensation grossly intact., CNII-XII grossly intact.CARDIOVASCULAR MEDICINE TESTING:I have personally reviewed the DUS carotids.IMPRESSION/PLAN: Ms. Gerardo is a 72 year old female with mild to moderate left ICA stenosis,asymptomatic.Con tinue with optimal medical management, dual antiplatelet therapy, statin.Follow up with repeat DUS carotids in one year. Follow up in one year or sooneras needed.[place]g [place] Provider: GRACIA VLILA [[id number]]Allergies As of Date: 02/14/2018 Noted Allergy ReactionBIAXIN (CLARITHROMYCIN) 12/21/2016 8 - GI UpsetCLINDAMYCIN 12/21/2016 8 - GI UpsetDEMEROL (MEPERIDINE (PF)) 12/21/2016 16 - UnknownVICODIN (HYDROCODONE-ACETAMINOPHE *12/21/2016 1 - Mental Status ChangeDate Reviewed: 02/14/2018Reviewed by: Keith Hagen - Fully AssessedPrimary Visit Diagnosis:Carotid stenosis, asymptomatic, bilateral [I65.23]Order(s):US CAROTID ARTERIES [facility] [[id number]] Order #: [id number] FUTUREPrescriptions as of 02/14/2018 Sig: FLUTICASONE 50 MCG/ACTUATION * Use 1 [place]arrass in each nostril t* KRILL OIL ORAL Take 500 mg by mouth once mariluz* LEVOTHYROXINE 50 MCG TABLET Take 50 mcg by mouth once mariluz* ATORVASTATIN 80 MG TABLET Take 80 mg by mouth once lauryn* OS-TANVI 500 + D3 ORAL Take 1 tablet by mouth once d* FLUOXETINE 20 MG CAPSULE Take 20 mg by mouth once lauryn* MECLIZINE 12.5 MG TABLET Take 25 mg by mouth three altaf* METOPROLOL TARTRATE 50 MG TAB* Take 50 mg by mouth twice mariluz* OMEPRAZOLE 20 MG CAPSULE,NATALEE* Take 20 mg by mouth once lauryn* ASPIRIN 81 MG TABLET,DELAYED * Take 1 tablet by mouth once d* CLOPIDOGREL 75 MG TABLET Take 1 tablet by mouth once d* FUROSEMIDE 20 MG TABLET Take 1 tablet by mouth once d*Medication notes this encounter FLUTICASONE 50 MCG/ACTUATION NASAL SPRAY,SUSPENSION >> Carmelo Brock RN 02/14/2018 9:56 AM >> CARMELO BROCK RN WedFeb 14, 2018 9:56 AM Received from: External Pharmacy Received Sig: USE 1 SPRAY IN EACH NOSTRILTWICE A DAY LEVOTHYROXINE 50 MCG TABLET >> Carmelo Brock RN 02/14/2018 9:58 AM >> CARMELO BROCK RN WedFeb 14, 2018 9:58 AM Received from: External PharmacyProblem List As Of Date: 02/14/2018(None)Medicatio ns Discontinued During This Encounter Levothyroxine 50 mcg cap 02/14/2018 Class: Historical Med Route: ORAL Sig: Take 1 capsule by mouth once daily. Disc: Reason for discontinue is not on file. ALPRAZolam (XANAX) 0.25 mg tablet 02/14/2018 Class: Historical Med Route: ORAL Sig: Take 0.25 mg by mouth at bedtime as needed. Disc: Reason for discontinue is not on file. Flaxseed Oil oil 02/14/2018 Class: Historical Med Route: ORAL Sig: Take 1 capsule by mouth once daily. Disc: Reason for discontinue is not on file. losartan (COZAAR) 100 mg tablet 90 t* 3 12/21/2016 02/14/2018 Route: ORAL Sig: Take 1 tablet by mouth once daily. Disc: Reason for discontinue is not on file.Disposition: Return in about 1 year (around 02/14/2019).Follow-up and Disposition History RecordedEncounter Number: [id number] Status:Closed by KEITH HAGEN MD on 02/14/18 Normal [facility] PROGRESSon 02-14-2018 PROGRESS HNO ID: [id number] thor: Keith Schulz: (none)Author Type: PhysicianType: Progress NotesFiled: 02/14/2018 11:05 AMNote Text:[facility] Department of Cardiovascular MedicineOUTPATIENT VISIT DATE February 14, 2018OUTPATIENT VISIT TYPEESTABLNOVANT HEALTHPRCOUNTS INCLUDE 234 BEDS AT THE [facility] C[facility] PHYSICIAN:Gracia Villa [address] [address]Mxhlj: [phone]: [phone] PHYSICIANGracia Villa [address] [address] COMPLAINT:No chief complaint on file.HISTORY OF PRESENT ILLNESS:Celi Gerardo was referred for consultation by Dr. Villa. Opinions andrecommendations in this consultation will be transmitted back to thereferring physician by [facility] notes or via mail.Ms. Gerardo is a 72 year old female who is seen today for follow upevaluation for left sided carotid artery stenosis.Denies any neurologic symptoms since last evaluation.Continue to work at [employer].Follow up DUS unchanged from previous study, at which time CTA had shown~50% left ICA stenosis.Continues on ASA, plavix, statin.Episode of dizziness, visual disturbance described as text on computerscreen being mixed up and possible slurred speech beginning of November2016. Attributed to vertigo.Workup included: MRI brain which showed atrophy, MRA head: hypoplasticleft vertebral artery, DUS neck: High grade stenosis of left ICA i/C 3.1,PSV 311, right I/C 1.3, PSV 126.Former smoker, 90 pack years. Right hand dominate.PAST MEDICAL HISTORYDiagnosis Date- C. difficile diarrhea- Carotid stenosis- COPD (chronic obstructive pulmonary disease) (HCC)- Dizziness- Hyperlipidemia- Hypertension- Pulmonary hypertension- VertigoPAST SURGICAL HISTORYProcedure Laterality Date- BACK SURGERY HX- HIATAL HERNIA REPAIR HX- TONSILLECTOMY HX- TUBAL LIGATION HXSOCIAL HISTORYSocial HistorySubstance Use Topics- Smoking status: Former Smoker Packs/day: 3.00 Years: 30.00 Types: Cigarettes- Smokeless tobacco: Never Used- Alcohol use NoNo family history on file.ALLERGIES:ALLERGIESA llergen Reactions- Biaxin [Clarithromy* GI Upset- Clindamycin GI Upset- Demerol [Meperidine* Unknown- Vicodin [Hydrocodon* Mental Status ChangeMEDICATIONS:flutica sone (FLONASE) 50 mcg/actuation nasal spray Use 1 [place] in eachnostril twice daily.KRILL OIL ORAL Take 500 mg by mouth once daily.levothyroxine (SYNTHROID) 50 mcg tablet Take 50 mcg by mouth once daily.atorvastatin (LIPITOR) 80 mg tablet Take 80 mg by mouth once daily.CALCIUM CARBONATE/VITAMIN D3 (OS-TANVI 500 + D3 ORAL) Take 1 tablet by mouthonce daily.FLUoxetine (PROZAC) 20 mg capsule Take 20 mg by mouth once daily.meclizine (ANTIVERT) 12.5 mg tab Take 25 mg by mouth three times daily asneeded.metoprolol tartrate, short acting, (LOPRESSOR) 50 mg tablet Take 50 mg bymouth twice daily.omeprazole (PRILOSEC) 20 mg capsule Take 20 mg by mouth once daily.aspirin, enteric coated (ADULT LOW DOSE ASPIRIN) 81 mg EC tablet Take 1tablet by mouth once daily.clopidogrel (PLAVIX) 75 mg tablet Take 1 tablet by mouth once daily.furosemide (LASIX) 20 mg tablet Take 1 tablet by mouth once daily.REVIEW OF SYSTEMS:GENERAL: no acute distressAll other ROS: negativeI personally interviewed, confirmed and edited the above information asobtained by others.PHYSICAL EXAMINATION:BP 126/70 (BP Site: Left Arm, BP Position: Sitting, BP Cuff Size: LargeAdult) Pulse 60 Resp 14 SpO2 96%General appearance: well nourished, alert and cooperative individual, inno acute distress.Neck: no bruitsPulmonary: Lungs clear to auscultation bilaterally.Coronary: regular rate and regular rhythmUpper Extremities: palp radial pulses bilaterallyNeuro: Awake, alert, and oriented., Gait normal. Sensation grosslyintact., CN II-XII grossly intact.CARDIOVASCULAR MEDICINE TESTING:I have personally reviewed the DUS carotids.IMPRESSION/PLAN: Ms. Gerardo is a 72 year old female with mild to moderate left ICAstenosis, asymptomatic.Continue with optimal medical management, dual antiplatelet therapy,statin.Follow up with repeat DUS carotids in one year. Follow up in one year orsooner as needed.Keith Hagen MD Normal [facility] Vital Signs Date Time Vital Sign Value Performing Clinician Faci lity 12-07-2024 10:40-0500 Diastolic blood pressure 66 mm[Hg] Gracia Mummert DO Work Phone: [facility] 12-07-2024 10:40-0500 Heart rate 53 /min Gracia Mummert DO Work Phone: [facility] 12-07-2024 10:40-0500 Respiratory rate 16 /min Gracia Mummert DO Work Phone: [facility] 12-07-2024 10:40-0500 SaO2% (BldA) [Mass fraction] 94 % Gracia Mummert DO Work Phone: [facility] 12-07-2024 10:40-0500 Systolic blood pressure 103 mm[Hg] Gracia Mummert DO Work Phone: [facility] 12-07-2024 09:25-0500 Body height 160.02 cm Gracia Mummert DO Work Phone: [facility] 12-07-2024 09:25-0500 Body weight 89.81 kg Gracia Mummert DO Work Phone: [facility] 11-23-2024 12:32-0500 Body height 160.02 cm [facility] 11-23-2024 12:32-0500 Body mass index (BMI) [Ratio] 35 kg/m2 [facility] 11-23-2024 12:32-0500 Body weight 89.81 kg [facility] 02-02-2024 13:17-0400 Body height 160 cm Vidal Verhoff PA-C Work Phone: [facility] 02-02-2024 13:17-0400 Body mass index (BMI) [Ratio] 35.78 kg/m2 Vidal Verhoff PA-C Work Phone: [facility] 02-02-2024 13:17-0400 Body weight 91.63 kg Vidal Verhoff PA-C Work Phone: [facility] 02-02-2024 13:17-0400 Diastolic blood pressure 71 mm[Hg] Vidal Verhoff PA-C Work Phone: [facility] 02-02-2024 13:17-0400 Heart rate 65 /min Vidal Verhoff PA-C Work Phone: [facility] 02-02-2024 13:17-0400 SaO2% (BldA) [Mass fraction] 95 % Vidal Verhoff PA-C Work Phone: [facility] 02-02-2024 13:17-0400 Systolic blood pressure 134 mm[Hg] Vidal Verhoff PA-C Work Phone: [facility] Encounters Encounter Date Encounter Type Care Provider Facility Start: 12-12-2024 End: 12-12-2024 Patient encounter procedure Gracia Villa DO Work Phone: [facility] Work Phone: Start: 12-12-2024 End: 12-12-2024 ambulatory Gracia Villa DO Work Phone: [facility] Work Phone: Start: 12-07-2024 Non-patient / Non-visit Wan Villa DO Work Phone: [facility] Work Phone: Start: 12-07-2024 End: 12-07-2024 Admission to same day surgery center Gracia Villa DO Work Phone: [facility] Work Phone: Start: 12-07-2024 End: 12-07-2024 ambulatory Gracia Villa DO Work Phone: [facility] Work Phone: Start: 11-23-2024 End: 11-23-2024 ambulatory [facility] Work Phone: Start: 11-23-2024 End: 11-23-2024 Patient encounter procedure [facility] Work Phone: Start: 11-20-2024 ambulatory Gracia Villa DO Faci lity: [facility] Start: 10-25-2024 ambulatory Gracia Villa DO Faci lity: [facility] Start: 10-25-2024 End: 10-25-2024 Office outpatient visit 25 minutes Vidal Barrientos PA-C Work Phone: [facility] Comment on above: Trochanteric bursiti s of both hips (Primary Dx); Lumbar stenosis with neurogenic claudication; Lumbosacral spondylosis without myelopathy; Encounter for long-term opiate analgesic use Start: 10-16-2024 End: 10-17-2024 Refill Halima Rider RN [facility] Comment on above: Lumbar stenosis with out neurogenic claudication Start: 08-31-2024 End: 09-01-2024 Refill Wendy Garcia RN [facility] Comment on above: Lumbar stenosis with out neurogenic claudication Start: 08-02-2024 End: 08-02-2024 ambulatory VIDAL BARRIENTOS [facility] Start: 06-24-2024 End: 06-24-2024 ambulatory SUZAN MONTANA [facility] Start: 06-23-2024 End: 06-23-2024 ambulatory MARK ESPINOSA [facility] Start: 06-23-2024 End: 06-23-2024 ambulatory [facility] Start: 06-10-2024 End: 06-10-2024 ambulatory SUZAN MONTANA [facility] Start: 06-09-2024 End: 06-09-2024 ambulatory [facility] Start: 05-24-2024 End: 05-24-2024 ambulatory Gracia Villa DO Facility:[facility] Start: 05-10-2024 End: 05-10-2024 ambulatory LETY BARRIENTOS Not Available Start: 03-21-2024 End: 03-21-2024 Patient encounter procedure DO Graciamagdalena Pozot Work Phone: [facility] [address] Work Phone: Start: 03-21-2024 End: 03-21-2024 ambulatory DO Graciamagdalena Villa Work Phone: [facility] Work Phone: Start: 02-22-2024 End: 02-22-2024 ambulatory Gracia Humphreymert DO Facility:[facility] Start: 02-16-2024 ambulatory Graciamagdalena Pozot DO Faci lity:[facility] Start: 02-02-2024 End: 02-02-2024 ambulatory [facility] Start: 02-02-2024 End: 02-02-2024 ambulatory [facility] Start: 02-02-2024 End: 02-02-2024 Office outpatient visit 25 minutes Vidal Barrientos PA-C Work Phone: [facility] Comment on above: Lumbar stenosis with neurogenic claudication (Primary Dx); Disorder of sacrum; Unspecified mononeuropathy of bilateral lower limbs; Encounter for long-term opiate analgesic use Start: 01-27-2024 Refill Halima Rider RN [facility] Comment on above: Lumbar stenosis with out neurogenic claudication Start: 01-19-2024 Refill Sandra De Oliveira RN [facility] Comment on above: Lumbar stenosis with out neurogenic claudication Start: 12-13-2023 Adán Rider RN [facility] Comment on above: Lumbar stenosis with out neurogenic claudication Start: 07-22-2021 End: 07-23-[address] DOCTOR ADRIAN Facility: Start: 02-14-2018 End: 02-14-2018 Ambulatory KEITHKULWINDER DUPREEMAGALY [facility] Procedures Date Procedure Procedure Detail Performing Clinician Start: 12-07-2024 Esophagogastroduodenoscopy Gracia dominguez DO Work Phone: Start: 03-21-2024 MRI of head DO Gracia Villa Work Phone: H/O: tubal ligation History of b ilateral tubal ligation Plan of Treatment Date Care Activity Detail Author Start: 10-25-2025 Tobacco Screening Tobacco Screening [facility] Start: 08-02-2025 Adult BMI Screening Adult BMI Screen ing [facility] Start: 08-02-2025 Tobacco Screening Tobacco Screening [facility] Start: 02-01-2025 Adult BMI Screening Adult BMI Screen [facility] Start: 02-01-2025 Tobacco Screening Tobacco Screening [facility] Start: 12-20-2024 End: 12-20-2024 Patient encounter procedure 12/20/2024 11:15 AM EST Office Visit [facility] [address] [place] [phone] Vidal Barrientos, PADannielleC [address] [place] [address] [facility] Start: 12-07-2024 [facility] Start: 11-24-2024 End: 11-24-2024 Admission to same day surgery center 11/24/2024 10:30 AM EST - 11/24/2024 10:38 AM EST Surgery [facility] [address] [place] [phone] Mark Espinosa MD [address] [place] [id number] INJECTION BLOCK EPIDURAL CAUDAL STEROID [79956 (CPT )] [facility] Comment on above: INJECTION BLOCK EPID URAL CAUDAL STEROID [16765 (CPT )] Start: 11-24-2024 End: 11-24-2024 Njx dx/ther sbst intrlmnr lmbr/sac w/img gdn INJECTION BLOCK EPIDURAL CAUDAL STEROID Lumbar stenosis with neurogenic claudication 11/24/2024 10:30 AM EST [facility] Start: 11-24-2024 Subsequent hospital visit by physician 11/24/2024 10:30 AM EST Hospital Encounter [facility] [address] [place] [phone] Mark Espinosa MD [address] [place], [place] [id number] [facility] Start: 11-03-2024 Adult BMI Screening Adult BMI Screen ing [facility] Start: 11-03-2024 Tobacco Screening Tobacco Screening [facility] Start: 10-25-2024 End: 10-25-2024 Patient encounter procedure 10/25/2024 12:30 PM EST Office Visit [facility] [address] [place] [phone] Vidal Barrientos, PADannielleC [address] [place], [place] [id number] [facility] Start: 07-23-2024 COVID-19 Vaccine ( season) COVID-19 Vaccine ( season) [facility] Start: 07-23-2024 COVID-19 Vaccine ( season) COVID-19 Vaccine ( season) [facility] Start: 07-23-2024 Influenza vaccination Influenza Vacc ine [facility] Start: 05-10-2024 End: 05-10-2024 Patient encounter procedure 05/10/2024 12:00 PM EDT Office Visit [facility] [address] [place] [address] Vidal Barrientos PA-C [address] [place] [address] [facility] Start: 02-02-2024 End: 02-02-2024 Patient encounter procedure 02/02/2024 1:00 PM EDT Office Visit [facility] [address] [place] [phone] Vidal Barrientos PA-C [address] [place] [address] [facility] Start: 2009 Fall Risk Screening Fall Risk Screen ing [facility] Start: 1994 Administration of varicella zoster vaccine Zoster (Shingles) Vaccine (1 of 2) [facility] Start: 1963 DTaP,Tdap and Td Vac cines (1 - Tdap) DTaP,Tdap and Td Vaccines (1 - Tdap) [facility] Start: 1962 Adult BMI Follow Up Plan Adult BMI Follow Up Plan [facility] Start: 1956 Depression Screening Depression Scre ening [facility] Start: 1944 Medicare Annual Well ness Visit Medicare Annual Wellness Visit [facility] Patient Education Esophageal Dil ation Hiatal hernia - Discharge instructions Know your [facility] Work Phone: Immunizations Immunization Date Immunization Notes Care Provider Fa cility 09-22-2023 influenza virus vaccine, unspecified formulation Wendy Garcia RN [facility] 06-26-2022 COVID-19, mRNA, LNP- S, PF, 30mcg/0.3mL Dose Halima Rider RN [facility] Payers Date Payer Category Payer Unknown [id number] 2024 Self-pay [id number] 2024 Unknown [id number] 2020 Managed Care Other (unspecified) COMMERCIAL Member Subscriber Plan / Payer (Effective 2020-Present) Name: Celi Gerardo Relation to Subscriber: Self Name: Celi Gerardo Valerie Payer ID: Not on file Group ID: [id number] Type: Not on file Address: [address] [id number] 2020 Unknown COMMERCIAL COMME RCIAL - GENERIC PLAN [id number] 2020-Present [phone] [place], [place] [id number] 2020 Medicare [id number] 2009 Medicare [id number] 1959 Medicare [id number] 1959 Unknown [id number] 1944 Unknown [id number] 2.16.840.1.378867.3.579.2 .593 1944 Unknown [id number] 2.16.840.1.172213.3.579.2 .1259 1944 Unknown [id number] 2.16.840.1.900123.3.579.2 .1285 1944 Unknown [id number] 2.16.840.1.452865.3.579.2 .1285 1944 Unknown [id number] 2.16.840.1.083876.3.579.2 .1285 1944 Unknown [id number] 2.16.840.1.901199.3.579.2 .1285 1944 Unknown [id number] 2.16.840.1.031117.3.579.2 .1285 1944 Unknown [id number] 2.16.840.1.883667.3.579.2 .1285 1944 Unknown [id number] 2.16840.1.257367.3.579.2 .1285 1944 Unknown [id number] 2.16.840.1.702607.3.579.2 .1285 1944 Unknown [id number] 2.16.840.1.637318.3.579.2 .1285 1944 Unknown [id number] 2.16.840.1.442075.3.579.2 .1285 1944 Unknown [id number] 2.16840.1.294749.3.579.2 .1285 1944 Unknown [id number] 2.16.840.1.461727.3.579.2 .1285 1944 Unknown [id number] 2.16.840.1.704470.3.579.2 .1944 Unknown [id number] 2.16.840.1.748310.3.579.2 .1944 Unknown [id number] 2.16.840.1.608787.3.579.2 .1944 Unknown [id number] 2.16.840.1.596474.3.579.2 .718 1944 Unknown [id number] 2.16.840.1.921333.3.579.2 .718 Unknown [id number] 2.16.840.1.025139.3.579.2 .531 Unknown [id number] 2.16840.1.012860.3.579.2 .531 Unknown [id number] 2.16840.1.622070.3.579.2 .531 Social History Date Type Detail Facility Start: 09-29-2022 End: 12-07-2024 Tobacco smoking status NVIS Ex-smoker [facility] End: 11-22-1986 History of tobacco use Current smoker [facility] End: 11-22-1986 History of tobacco use Cigarette Smoker [facility] Start: 09-29-2022 Tobacco use and exposure Smoke less tobacco non-user [facility] Start: 11-03-2023 End: 10-25-2024 Alcohol intake Current non-drinker of alcohol (finding) [facility] Start: 08-22-2020 End: 12-10-2020 History of Social function [facility] Start: 08-22-2020 End: 12-10-2020 Social connection and isolation panel [facility] Do you belong to any clubs or organizations such as voodoo groups, unions, fraternal or athletic groups, or school groups? No [facility] Are you now , , , , never or living with a partner? Patient declined [facility] Do you feel stress - tense, restless, nervous, or anxious, or unable to sleep at night because your mind is troubled all the time - these days [OSQ] Not at all [facility] Start: 1945 Sex Assigned At Not on file P [facility] Start: 1945 Sex Assigned At Female F [facility] Start: 06-27-2015 End: 12-13-2024 Sex Female (finding) [facility] Medical Equipment Procedure Code Equipment Code Equipment Origin al Text Equipment Identifier Dates Sincere patton 2.75x23 Rx - [id number], [id number] [facility] Start: 08-23-2020 Goals Date Patient Goal Desired Activity /State Personal health goal Comment on above: Formatting of this n ote might be different from the original. Evaluation of progress towards goal: Patient plans to DC home with self care Clinical Notes 12-13-2023 to 12-07-2024 Note Date & Type Note Facility 12-07-2024 Procedure note [facility] 12-07-2024 History and physi tanvi note [facility] 11-23-2024 Evaluation note Diagnosis Onset Date Resolution Dysphagia acute November 23 12:26pm History of repair of hiatal hernia acute November 23 12:26pm [facility] Work Phone: [phone]) 846-637512-04-2024 History of Present illness Narrative* Vidal Barrientos PA-C - 10/25/2024 12:30 PM EST [facility] [address] [place] [address] Patient: Celi J Cottle Sex: female : 1945 Age: 79 y.o. PCP: Gracia Villa, DO 10/25/2024 Celi J Cottle is here for a 3 month follow up with increased pain across the back and right hip. Date of onset of pain: 2004 , pain has lasted greater than 3 months. Chief Complaint Patient presents with Back Pain HPI: PT/HEP (07/2021 aqua therapy) with slight improvement Back: Previous hip injections w/ sig. relief. Caudaul 11/20/2019 with 70% relief x2 weeks. 05/29/22 Ovi SI with 100% relief for 2 weeks 06/17/22 Ovi GTB w/100% relief 10/30/2022 bilateral sacroiliac joint injection w/ 80% relief 12/11/2022 bilateral L4/5, L5/S1 Medial Branch Block with 75% relief x 1 week 02/10/2023 bilateral L4/5 L5/S1 MBB with 90% relief for 2 weeks Right L 4/5, 5/1 radiofrequency ablation on 04/02/23 with 70% relief of back pain increased right leg pain after procedure, pre-proc pain 8/10 post proc back pain 2/10 Left L 4/5, 5/1 radiofrequency ablation on 04/16/2023 with 80% relief. Pre-proc pain 6/10 post proc 2/10 09/03/2023 caudal with 80% relief x 3 days and 50% continued relief of leg pain 06/09/24 Rt L 4/5, 5/ RFA w/90% relief continued 06/23/24 Lt L 4/5, 5 RFA w/90% relief continued Back Pain This is a chronic problem. The current episode started more than 1 year ago (Since 2004). The problem occurs constantly. The problem has been gradually worsening since onset. The pain is present in the lumbar spine, gluteal and sacro-iliac. The quality of the pain is described as aching (crunching). Radiates to: Rt hip. The pain is at a severity of 8/10. The pain is severe. The pain is Worse during the day. Exacerbated by: lifting, walking, bending, prolonged standing, twisting, driving, sleeping. Stiffness is present In the morning. Associated symptoms include leg pain (Rt hip to knee). Pertinent negatives include no bladder incontinence, bowel incontinence, chest pain, fever, numbness, tingling or weakness. Risk factors include obesity and poor posture. Treatments tried: PT/HEP (07/2021 aqua therapy) with slight improvement. Chiropractic manipulation, analgesics, muscle relaxants, rest, NSAIDx2 (naproxen, ibuprofen) w/ slight relief. Gabapentin, sitting w/mod relief, percocet w/mod relief. The treatment provided moderate relief. The effect of pain on patient's ADLS: Moderate Impairment. Past Medical History: Diagnosis Date Chronic pain disorder COPD (chronic obstructive pulmonary disease) ([facility]) Depression GERD (gastroesophageal reflux disease) Hypertension Hypothyroid Low back pain Obesity Past Surgical History: Procedure Laterality Date BACK SURGERY 06/2015 lumbar Cardiac catheterization 08/23/2020 Performed by Zainab Arnold MD at [facility] CARDIAC CATH LABS CATARACT EXTRACTION Right 05/2020 LENS REPLACED DUE TO INJURY CATARACT EXTRACTION, BILATERAL 2002 Coronary angiogram and left ventricular gram/pressure N/A 08/23/2020 Performed by Zainab Arnold MD at [facility] CARDIAC CATH LABS EYE SURGERY EYE SURGERY FOOT SURGERY Left 12/2021 HIATAL HERNIA REPAIR 2007 INJECTION BLOCK EPIDURAL CAUDAL STEROID N/A 09/03/2023 Performed by Mark Espinosa MD at [place] [facility] INJECTION BLOCK NERVE MEDIAL BRANCH Bilat L 4/5, 5/1 Bilateral 01/22/2023 Performed by Mark Espinosa MD at [facility] [facility] INJECTION BLOCK NERVE MEDIAL BRANCH Bilat L 4/5, 5/1 Bilateral 12/11/2022 Performed by Mark Espinosa MD at [place] [facility] INJECTION BLOCK SACROILIAC JOINT Bilateral 10/30/2022 Performed by Mark Espinosa MD at [place] [facility] INJECTION BLOCK SACROILIAC JOINT Bilateral 05/29/2022 Performed by Mark Espinosa MD at [place] [facility] INJECTION BURSA LARGE JOINT Bilat Hip Bilateral 03/07/2021 Performed by Mark Espinosa MD at [place] [facility] INJECTION BURSA LARGE JOINT: bilat hip Bilateral 06/13/2021 Performed by Mark Espinosa MD at [facility] [facility] INJECTION CAUDAL EPIDURAL WITH CATHETER, STEROID N/A 11/20/2019 Performed by Mark Espinosa MD at [facility] [facility] INJECTION CAUDAL EPIDURAL WITH CATHETER, STEROID x 1 N/A 08/25/2019 Performed by Mark Espinosa MD at [place] [facility] INJECTION LARGE JOINT BURSA: ovi hip Bilateral 11/08/2020 Performed by Mark Espinosa MD at [place] [facility] INJECTION LARGE JOINT BURSA: ovi hip Bilateral 08/09/2020 Performed by Mark Espinosa MD at [place] [facility] INJECTION LARGE JOINT BURSA: ovi hip Bilateral 11/04/2018 Performed by Mark Espinosa MD at [place] [facility] INJECTION LARGE JOINT BURSA: ovi hip Bilateral 04/11/2018 Performed by Mark Espinosa MD at [place] [facility] INJECTION LARGE JOINT BURSA: bilat hip Bilateral 10/09/2019 Performed by Mark Espinosa MD at [place] [facility] INJECTION LARGE JOINT BURSA: bilat hip Bilateral 05/12/2019 Performed by Mark Espinosa MD at [place] [facility] INJECTION LARGE JOINT BURSA: bilat hip Bilateral 02/03/2019 Performed by Mark Espinosa MD at [facility] INJECTION LARGE JOINT BURSA: bilat hip Bilateral 07/15/2018 Performed by Mark Espinosa MD at [facility] INJECTION MEDIAL BRANCH NERVE BLOCK Left L3/4, 4/5, 5/1 MBB Left 01/07/2018 Performed by Mark Espinosa MD at [facility] INJECTION MEDIAL BRANCH NERVE BLOCK: left L34 45 51mbb Left 02/04/2018 Performed by Mark Espinosa MD at [facility] RADIOFREQUENCY ABLATION SPINAL Left L 4/5, 5/1 Left 06/23/2024 Performed by Mark Espinosa MD at [facility] RADIOFREQUENCY ABLATION SPINAL Left L 4/5, 5/1 Left 04/16/2023 Performed by Mark Espinosa MD at [facility] RADIOFREQUENCY ABLATION SPINAL Right L 4/5, 5/1 Right 06/09/2024 Performed by Mark Espinosa MD at [facility] RADIOFREQUENCY ABLATION SPINAL Right L 4/5,5/1 Right 04/02/2023 Performed by Mark Espinosa MD at [facility] RADIOFREQUENCY ABLATION SPINAL: left L34 45 51rfa Left 03/07/2018 Performed by Mark Espinosa MD at [facility] Stent drug-eluting left circumflex N/A 08/23/2020 Performed by Zainab Arnold MD at [facility] CARDIAC CATH LABS TUBAL LIGATION Allergies Allergen Reactions Biaxin [Clarithromycin] Nausea Clindamycin States she developed C diff after 3 doses Demerol [Meperidine] Dermatitis [place] [Hydrocodone-Acetaminophen] feels fuzzy Family History Problem Relation Age of Onset Stroke Mother Hypertension Mother Heart disease Father Alcohol abuse Father Cancer Brother Stroke Brother Heart attack Brother Social History Socioeconomic History Marital status: Spouse name: Not on file Number of children: Not on file Years of education: Not on file Highest education level: Not on file Occupational History Not on file Tobacco Use Smoking status: Former Current packs/day: 0.00 Types: Cigarettes Quit date: 1986 Years since quittin.9 Smokeless tobacco: Never Vaping Use Vaping status: Never Used Substance and Sexual Activity Alcohol use: No Drug use: No Sexual activity: Defer Other Topics Concern Caffeine Use Yes Comment: 1 tumbler or about 2 cups Social History Narrative Not on file Social Drivers of Health Financial Resource Strain: Low Risk (08/22/2020) Overall Financial Resource Strain (CARDIA) Difficulty of Paying Living Expenses: Not hard at all Food Insecurity: No Food Insecurity (10/25/2024) Hunger Screening Food Insecurity - Worry: Never True Food Insecurity - Inability: Never True Transportation Needs: No Transportation Needs (08/22/2020) PRAPARE - Transportation Lack of Transportation (Medical): No Lack of Transportation (Non-Medical): No Physical Activity: Inactive (08/22/2020) Exercise Vital Sign Days of Exercise per Week: 0 days Minutes of Exercise per Session: 0 min Stress: No Stress Concern Present (08/22/2020) [employer] [place] [employer] - Occupational Stress Questionnaire Feeling of Stress : Not at all Social Connections: Unknown (08/22/2020) Social Connection and Isolation Panel [NHANES] Frequency of Communication with Friends and Family: More than three times a week Frequency of Social Gatherings with Friends and Family: More than three times a week Attends Yazidism Services: 1 to 4 times per year Active Member of Clubs or Organizations: No Attends Club or Organization Meetings: Never Marital Status: Patient declined Interpersonal Safety: Unknown (01/13/2024) Re[facility] from [facility] Safety & Environment Fear of Current or Ex-Partner: Not on file Emotionally Abused: Not on file Physically Abused: Not on file Sexually Abused: Not on file Physically or Sexually Abused: Not on file Housing Instability: Not on file Review of Systems Constitutional: Negative. Negative for chills, fatigue and fever. HENT: Negative. Eyes: Negative. Respiratory: Negative. Negative for cough and shortness of breath. Cardiovascular: Negative. Negative for chest pain. Gastrointestinal: Negative. Negative for bowel incontinence. Endocrine: Negative. Genitourinary: Negative. Negative for bladder incontinence. Musculoskeletal: Positive for back pain. Skin: Negative. Allergic/Immunologic: Negative. Neurological: Negative. Negative for tingling, weakness and numbness. Hematological: Negative. Psychiatric/Behavioral: Negative. Vital Signs: There were no vitals taken for this visit. Physical Exam: GENERAL - Healthy patient that appears stated age. HEENT - Normocephalic / Atraumatic, Extraoccular movements intact, trachea midline, thyroid within normal limits. CV - pulse regular, Warm extremities with appropriate color of nailbeds. RESP - No obvious wheezing, No Shortness of Breath, No overexertion response to exam maneuvers. COORDINATION - remains intact. PSYCH - Alert and Oriented x4, Attentive and appropriate, constitutionally normal, displays normal mood and affect per situation, answered questions appropriately during examination, demonstrated appropriate attention during discussion, demonstrated appropriate cognitive reasoning and understandingof the medical condition by asking appropriate questions regarding the diagnosis and risks/benefits/alternatives of treatment modalities. No obvious deficits in memory, reasoning, or intellect. Lumbar: SKIN - No rashes or bruising in the area of the patient s pain. LYMPH NODES - demonstrate no obvious enlargement. EXTREMITIES - Lower extremities are warm, with minimal edema and palpable pulses. Tenderness to palpation noted in the lumbar spine and paraspinal musculature. Pain is elicited withflexion, extension, and lateral rotation of the lumbar spine. Range of motion is diminished with these motions due to pain. Facet palpation is noted to be somewhat tender and facet loading maneuvers are mildly positive, but not concordant with the patient s normal pain complaints. STRENGTH - noted to be 5 out of 5 all muscle groups bilateral lower extremities including muscles involving hip flexion and abduction, knee flexion and extension, as well as foot dorsiflexion and plantarflexion. No notable atrophy, fasciculations or spasm. SENSORY - No notable sensory deficits in the bilateral lower extremities to touch or pinprick in all dermatomal distributions. Straight Leg Raise is negative. Tenderness to palpation noted over the Bilateral right greater than Left. Greater Trochanteric Bursa which is consistent with some of the patient s normal pain. Gait is antalgic. Assessment/Treatment Plan: Celi was seen today for back pain. Diagnoses and all orders for this visit: Trochanteric bursitis of both hips Lumbar stenosis with neurogenic claudication - Case request operating room: INJECTION BLOCK EPIDURAL CAUDAL STEROID Lumbosacral spondylosis without myelopathy Encounter for long-term opiate analgesic use Continue Gabapentin 300 mg TID and Percocet 5/325 mg 1 tablet daily PRN Caudal Epidural Steroid Injection - under fluoroscopy with the use of contrast dye (unless contraindicated) It is hopeful that the described procedure will provide symptomatic pain relief. It is felt to be medically necessary noting that the patient has tried and failed more conservative modalities of therapy and this is the next most appropriate step. The procedure was described in detail to the patientas well as the potential benefits of pain reduction alongside risks of the procedure and alternatives. Risks were described as including, but not limited to bleeding, infection, nerve damage, spinal cord injury, paralysis, stroke, dural puncture headache, and medication reaction. The patient expressed understanding regarding the risks and benefits and wishes to proceed. It was explained that Caudal injections often require a series of 2-3 before significant relief is noted, but we will determine after each injection if another one is indicated. Depending on the amount and duration of relief obtained from the injection, additional modalities of therapy including med ications and physical therapy may need to be utilized alongside or following the injections. The patient would like to continue receiving epidural injections as they provide 50% or more reliefwith sustained improvement in both pain and physical function after the injection lasting for a minimum of three months. Patient is not a surgery candidate. Follow up 2 weeks after procedure The medications I have prescribed have been reviewed for medication interactions/contraindications and/or for upcoming procedures: continue current medication regimen without any changes. DISCUSSION: Treatment options discussed with patient and all questions answered to patient's satisfaction. Discussed the rules and regulations surrounding prescription of opioids and compliance at length. Failure to follow the rules and regulation will result in tapering and discontinuation of medications if applicable. The patient has been instructed as to the type of medication prescribed alongwith directions for use. Potential side effects have been discussed, along with risks and benefits of taking this medication. (S)he was instructed as to what to do if (s)he experiences side effects, including when to discontinue the medication. (S)he was advised to call this office in this event. Also discussed at length safety and security of RX and medications. Due to the high risk nature of this patient's pain medication regimen, frequent office visit refill appointments (every 1-3 months) are medically necessary to monitor for an addiction disorder. Prescribed medication that requires intensive monitoring for toxicity: Percocet and Gabapentin. OARRS and most recent UDS were reviewed, discussed and appropriate for medications prescribed. Percocet pill count completed at today's office visit. Dose: 5/325 mg daily Quantity Dispensed 30 Quantity Remaining 23 Fill date on prescription bottle 10/18/2024 appropriate Patient educated to bring medication to every office visit. Treatment plans discussed but not opted for at this time: Bilateral GTB injection. Patient would like to proceed with the current outlined treatment plan before moving forward with any other options. It is noted that the patient did have good response from the previously performed procedure. It is felt that the patient would benefit from an additional procedure of the same nature in that the samesymptoms have returned. It is hopeful that this additional injection will provide additional benefit and duration when combined with the previous injection. The spine model was demonstrated and MRI was reviewed and used to explain the condition. Chronic conditions not treated during this visit that affected my overall medical decision making: Comorbidity- Obesity The patient does have a comorbid condition of obesity. This will be taken into account in that obesity will contribute to certain pain conditions. It can contribute to pain from degenerative disc disease as well as osteoarthritis of the joints. Many neuropathic symptoms are also amplified due to axial spine loading. Special benefits will also need to be given to procedures. Many procedures are technically more difficult in the light of severe obesity. I will also consider the possibility of undiagnosed obstructive sleep apnea (which often accompanies obesity) when prescribing any narcotic medications. I will weigh the risks and benefits and fully discuss them with the patient for these reasons. Comorbidity- Depression The patient has an ongoing issue with depression and currently feels these symptoms are under control and further feels that appropriate pain management would also help these symptoms. The patient isoptimistic about the treatment plan we have laid out. We will continue to monitor these symptoms and remain cogniscent that they may affect the patients perceived improvement from the treatment and willingness to pursue further treatment. At this time the patient appears to be mentally and emotionally stable to undergo procedural and medical therapy. If any warning signs become present, I may refer the patient to a mental health professional for further evaluation. OARRS: Reviewed. Scribe Statement: Scribed for and in the presence of VIDAL BARRIENTOS PA-C by Nydia Golden CNA. Provider Statement: I, VIDAL BARRIENTOS PA-C, personally performed the services described in the documentation, as scribed by Nydia Golden CNA in my presence, and it is both accurate and complete. Nydia Golden CNA 10/25/24 1327 Vidal Barrientos PA-C 10/25/24 1340 documented in this encounterAdams County [facility] Medical CenterFlavours12-04-2024 Instructions* Patient Instructions* Nydia Golden CNA - 10/25/2024 12:30 PM EST Epidural Steroid Injection (DARIELA) / Nerve Root Injection / Nerve Block These procedure(s) involve the injection of a steroid and anesthetic into the epidural space or thenerve sheath that is both diagnostic and potentially therapeutic for alleviating discomfort of the legs and arms secondary to compression of the respective nerves due to bulging discs, bone spurs andother potential causes. Steroids are potent anti-inflammatory drugs that act to decrease the swollen and inflamed nerves thus relieving your clinical symptoms. How Long Will This Procedure Last? The extent and duration of pain relief may depend on the amount of inflammation and how many areas are involved. Other coexisting factors may be responsible for your pain. You and your physician will discuss expected results of procedure(s). After Your Injection You may experience soreness and tenderness at the area of treatment. This pain may not occur until later today after the numbing medicine wears off. The steroid can take 3-5 days to work and provide noticeable improvement. Activity You may feel temporary numbness, weakness or tingling: In the neck, arm, or fingertips (if your procedure was done in your neck) In the legs (if your procedure was done in your lower back) These symptoms are normal, and should subside within 3-4 hours. In that time, be careful to avoid falls. As a safety precaution, you must have a straddle bug driver after a lumbar nerve root injection, even if you do not receive sedation. Resume activity as tolerated when function has returned. Medications Resume your routine medications after your procedure. You may resume blood thinners per your regular schedule after the procedure. If you received sedation: If you received sedation for your procedure, you may feel sleepy or not yourself for several hours today. For the next 24 hours avoid activities that requires alertness or coordination. This includes: Driving or operating heavy machinery Using power tools Consuming alcohol Do not make important or complex decisions or sign legal documents in the next 24 hours. Other Instructions: If you feel severe pain at the injection site with swelling and redness, increased leg weakness, a fever of 101 or higher, headache (or worsening headache), changes in vision or urinary retention: Please call the office at , or have someone take you to the nearest emergency room. Tellthe emergency room staff that you recently had a spine injection. A doctor must evaluate you for bleeding and injection complications. If you lose control over bowel, bladder, or legs: Go to the nearest emergency room. If you are diabetic, the steroids used in this procedure can increase your blood sugar. If your blood sugar is 250mg/dL or higher, contact your primary care physician, or the doctor who manages your diabetes, to discuss how to get it back to normal. documented in this encounterOhioHealth [facility] Hospital11-25-2024 Miscellaneous Notes* Telephone Encounter - Halima Rider RN - 10/16/2024 10:36 AM EST Last Office Visit: 08/02/2024 Next Office Visit: 10/25/2024 Last Urine Drug Screen: Lab Results Component Value Date BENZOSCRN Negative 02/02/2024 OARRS appropriate documented in this encounterOhioHealth Shelby Hospital11-25-2024 Telephone encounter Note* Telephone Encounter - Halima Rider RN - 10/16/2024 10:36 AM EST Last Office Visit: 08/02/2024 Next Office Visit: 10/25/2024 Last Urine Drug Screen: Lab Results Component Value Date BENZOSCRN Negative 02/02/2024 OARRS appropriate [facility]10-10-2024 Miscellaneous Notes* Telephone Encounter - Wendy Garcia RN - 08/31/2024 3:20 PM EDT Last OV: 08/02/2024 Next OV: 10/25/2024 OARRS appropriate: yes Last UDS: 08/02/2024 [facility] documented in this encounterOhioHealth Shelby Hospital10-10-2024 Telephone encounter Note* Telephone Encounter - Wendy Garcia RN - 08/31/2024 3:20 PM EDT Last OV: 08/02/2024 Next OV: 10/25/2024 OARRS appropriate: yes Last UDS: 08/02/2024 Pharmacy: [facility]08-19-2024 NoteEntered by Maribell Arias LPN on July 10, 2024 09:14:27 EDT From: Maribell Arias LPN To: [facility] Sent: 07/10/2024 09:14:26 EDT Subject: Medication Management Submitted: Complete:isosorbide mononitrate (isosorbide mononitrate 30 mg oral tablet, extended release) Signed by Maribell Arias LPN 07/10/2024 09:14:00 EDT Approved with modifications: isosorbide mononitrate (ISOSORBIDE MONONITRATE ER TABS 30MG) TAKE 1 TABLET EVERY MORNING Qty: 90 tab(s) Days Supply: 0 Refills: 3 Substitutions Allowed Route To [facility]acy - [facility] Signed by Maribell Arias LPN From: [facility] To: Gracia Villa DO, DO Sent: July 10, 2024 12:53:36 AM CDT Subject: Medication Management Due: July 11, 2024 12:41:53 AM CDT On Hold Pending Signature Drug: isosorbide mononitrate (isosorbide mononitrate 30 mg oral tablet, extended release), TAKE 1 TABLET EVERY MORNING Quantity: 90 tab(s) Days Supply: 0 Refills: 3 Substitutions Allowed Notes from Pharmacy: Dispensed Drug: isosorbide mononitrate (isosorbide mononitrate 30 mg oral tablet, extended release), TAKE 1 TABLET EVERY MORNING Quantity: 90 tab(s) Days Supply: 0 Refills: 3 Substitutions Allowed [id number] History of Present illness Narrative* Vidal Barrientos PA-C - 02/02/2024 1:00 PM EDT [facility] [address] [place] [address] Patient: Celi Gerardo Sex: female : 1945 Age: 78 y.o. PCP: Gracia Villa, DO 02/02/2024 Celi Gerardo is here for a 3 month follow up. She reports her pain has been under good control. Chief Complaint Patient presents with Back Pain HPI: PT/HEP (07/2021 aqua therapy) with slight improvement Back: Previous hip injections w/ sig. relief. Caudaul 11/20/2019 with 70% relief x2 weeks. 05/29/22 Ovi SI with 100% relief for 2 weeks 06/17/22 Ovi GTB w/100% relief 10/30/2022 bilateral sacroiliac joint injection w/ 80% relief 12/11/2022 bilateral L4/5, L5/S1 Medial Branch Block with 75% relief x 1 week 02/10/2023 bilateral L4/5 L5/S1 MBB with 90% relief for 2 weeks right L 4/5, 5/1 radiofrequency ablation on 04/02/23 with good relief of back pain now has pain downher right leg. Left L 4/5, 5/1 radiofrequency ablation on 04/16/2023 with 80% relief. 09/03/2023 caudal with 80% relief x 3 days and 50% continued relief Back Pain This is a chronic problem. The current episode started more than 1 year ago (Since 2004). The problem occurs constantly. The problem has been gradually improving since onset. The pain is present in the lumbar spine, gluteal and sacro-iliac. The quality of the pain is described as aching and cramping. Radiates to: Rt hip. Pain scale: 3/10 now, increases to 6/10 first thing in morning. The pain is moderate. The pain is Worse during the day (sitting up makes pain worse; able to get some relief reclining in chair). Exacerbated by: lifting, walking, bending, prolonged standing, twisting, driving, sleeping. Stiffness is present In the morning. Associated symptoms include leg pain (RLE intermittently). Pertinent negatives include no bladder incontinence, bowel incontinence, chest pain, fever, numbness, tingling or weakness. Risk factors include obesity and poor posture. Treatments tried: PT/HEP (07/2021 aqua therapy) with slight improvement. Chiropractic manipulation, analgesics, muscle relaxa nts, rest, NSAIDx2 (naproxen, ibuprofen) w/ slight relief. Gabapentin, sitting w/mod relief, percocet w/mod relief. The treatment provided moderate relief. The effect of pain on patient's ADLS: Moderate Impairment. Past Medical History: Diagnosis Date Chronic pain disorder COPD (chronic obstructive pulmonary disease) ([facility]) Depression GERD (gastroesophageal reflux disease) Hypertension Hypothyroid Low back pain Obesity Past Surgical History: Procedure Laterality Date BACK SURGERY 06/2015 lumbar Cardiac catheterization 08/23/2020 Performed by Zainab Arnold MD at [facility] CARDIAC CATH LABS CATARACT EXTRACTION Right 05/2020 LENS REPLACED DUE TO INJURY CATARACT EXTRACTION, BILATERAL 2002 Coronary angiogram and left ventricular gram/pressure N/A 08/23/2020 Performed by Zainab Arnold MD at [facility] CARDIAC CATH LABS EYE SURGERY EYE SURGERY FOOT SURGERY Left 12/2021 HIATAL HERNIA REPAIR 2006 INJECTION BLOCK EPIDURAL CAUDAL STEROID N/A 09/03/2023 Performed by Mark Espinosa MD at [facility] INJECTION BLOCK NERVE MEDIAL BRANCH Bilat L 4/5, 5/1 Bilateral 01/22/2023 Performed by Mark Espinosa MD at [facility] INJECTION BLOCK NERVE MEDIAL BRANCH Bilat L 4/5, 5/1 Bilateral 12/11/2022 Performed by Mark Espinosa MD at [facility] INJECTION BLOCK SACROILIAC JOINT Bilateral 10/30/2022 Performed by Mark Espinosa MD at [facility] INJECTION BLOCK SACROILIAC JOINT Bilateral 05/29/2022 Performed by Mark Espinosa MD at [facility] INJECTION BURSA LARGE JOINT Bilat Hip Bilateral 03/07/2021 Performed by Mark Espinosa MD at [facility] INJECTION BURSA LARGE JOINT: bilat hip Bilateral 06/13/2021 Performed by Mark Espinosa MD at [facility] INJECTION CAUDAL EPIDURAL WITH CATHETER, STEROID N/A 11/20/2019 Performed by Mark Espinosa MD at [facility] INJECTION CAUDAL EPIDURAL WITH CATHETER, STEROID x 1 N/A 08/25/2019 Performed by Mark Espinosa MD at [facility] INJECTION LARGE JOINT BURSA: ovi hip Bilateral 11/08/2020 Performed by Mark Espinosa MD at [facility] LARGE JOINT BURSA: ovi hip Bilateral 08/09/2020 Performed by Mark Espinosa MD at [facility] IN[facility] LARGE JOINT BURSA: ovi hip Bilateral 11/04/2018 Performed by Mark Espinosa MD at [facility] INJECTION LARGE JOINT BURSA: ovi hip Bilateral 04/11/2018 Performed by Mark Espinosa MD at [facility] INJECTION LARGE JOINT BURSA: bilat hip Bilateral 10/09/2019 Performed by Mark Espinosa MD at [facility] INJECTION LARGE JOINT BURSA: bilat hip Bilateral 05/12/2019 Performed by Mark Espinosa MD at [facility] INJECTION LARGE JOINT BURSA: bilat hip Bilateral 02/03/2019 Performed by Mark Espinosa MD at [facility] INJECTION LARGE JOINT BURSA: bilat hip Bilateral 07/15/2018 Performed by Mark Espinosa MD at [facility] INJECTION MEDIAL BRANCH NERVE BLOCK Left L3/4, 4/5, 5/1 MBB Left 01/07/2018 Performed by Mark Espinosa MD at [facility] INJECTION MEDIAL BRANCH NERVE BLOCK: left L34 45 51mbb Left 02/04/2018 Performed by Mark Espinosa MD at [facility] RADIOFREQUENCY ABLATION SPINAL Left L 4/5, 5/1 Left 04/16/2023 Performed by Mark Espinosa MD at [facility] RADIOFREQUENCY ABLATION SPINAL Right L 4/5,5/1 Right 04/02/2023 Performed by Mark Espinosa MD at [facility] RADIOFREQUENCY ABLATION SPINAL: left L34 45 51rfa Left 03/07/2018 Performed by Mark Espinosa MD at [facility] Stent drug-eluting left circumflex N/A 08/23/2020 Performed by Zainab Arnold MD at [facility] CARDIAC CATH LABS TUBAL LIGATION Allergies Allergen Reactions Biaxin [Clarithromycin] Nausea Clindamycin States she developed C diff after 3 doses Demerol [Meperidine] Dermatitis [place] [Hydrocodone-Acetaminophen] feels fuzzy Family History Problem Relation Age of Onset Stroke Mother Hypertension Mother Heart disease Father Alcohol abuse Father Cancer Brother Stroke Brother Heart attack Brother Social History Socioeconomic History Marital status: Spouse name: Not on file Number of children: Not on file Years of education: Not on file Highest education level: Not on file Occupational History Not on file Tobacco Use Smoking status: Former Types: Cigarettes Quit date: 1986 Years since quittin.2 Smokeless tobacco: Never Vaping Use Vaping Use: Never used Substance and Sexual Activity Alcohol use: No Drug use: No Sexual activity: Defer Other Topics Concern Caffeine Use Yes Comment: 1 tumbler or about 2 cups Social History Narrative Not on file Social Determinants of Health Financial Resource Strain: Low Risk (08/22/2020) Overall Financial Resource Strain (CARDIA) Difficulty of Paying Living Expenses: Not hard at all Food Insecurity: No Food Insecurity (02/02/2024) Hunger Screening Food Insecurity - Worry: Never True Food Insecurity - Inability: Never True Transportation Needs: No Transportation Needs (08/22/2020) PRAPARE - Transportation Lack of Transportation (Medical): No Lack of Transportation (Non-Medical): No Physical Activity: Inactive (08/22/2020) Exercise Vital Sign Days of Exercise per Week: 0 days Minutes of Exercise per Session: 0 min Stress: No Stress Concern Present (08/22/2020) [place] [place] [employer] - Occupational Stress Questionnaire Feeling of Stress : Not at all Social Connections: Unknown (08/22/2020) Social Connection and Isolation Panel [NHANES] Frequency of Communication with Friends and Family: More than three times a week Frequency of Social Gatherings with Friends and Family: More than three times a week Attends Yazidism Services: 1 to 4 times per year Active Member of Clubs or Organizations: No Attends Club or Organization Meetings: Never Marital Status: Patient declined Interpersonal Safety: Unknown (08/22/2020) Humiliation, Afraid, Rape, and Kick questionnaire Fear of Current or Ex-Partner: Patient declined Emotionally Abused: Patient declined Physically Abused: Patient declined Sexually Abused: Patient declined Housing Instability: Not on file Review of Systems Constitutional: Negative for chills and fever. HENT: Negative. Eyes: Negative. Respiratory: Negative for cough and shortness of breath. Cardiovascular: Negative for chest pain. Gastrointestinal: Negative. Negative for bowel incontinence. Endocrine: Negative. Genitourinary: Negative. Negative for bladder incontinence. Musculoskeletal: Positive for back pain. Skin: Negative. Allergic/Immunologic: Negative. Neurological: Negative for tingling, weakness and numbness. Hematological: Negative. Psychiatric/Behavioral: Negative. Vital Signs: BP 134/71 Pulse 65 Ht 160 cm (5' 3 ) Wt 91.6 kg (202 lb) SpO2 95% BMI 35.78 kg/m Physical Exam: GENERAL - Healthy patient that appears stated age. HEENT - Normocephalic / Atraumatic, Extraoccular movements intact, trachea midline, thyroid within normal limits. CV - pulse regular, Warm extremities with appropriate color of nailbeds. RESP - No obvious wheezing, No Shortness of Breath, No overexertion response to exam maneuvers. COORDINATION - remains intact. PSYCH - Alert and Oriented x4, Attentive and appropriate, constitutionally normal, displays normal mood and affect per situation, answered questions appropriately during examination, demonstrated appropriate attention during discussion, demonstrated appropriate cognitive reasoning and understandingof the medical condition by asking appropriate questions regarding the diagnosis and risks/benefits/alternatives of treatment modalities. No obvious deficits in memory, reasoning, or intellect. Lumbar: SKIN - No rashes or bruising in the area of the patient s pain. LYMPH NODES - demonstrate no obvious enlargement. EXTREMITIES - Lower extremities are warm, with minimal edema and palpable pulses. Tenderness to palpation noted in the lumbar spine and paraspinal musculature. Pain is elicited withflexion, extension, and lateral rotation of the lumbar spine. Range of motion is diminished with these motions due to pain. Facet palpation is noted to be painful and facet loading maneuvers elicit pain that is concordant with the patient s normal pain complaints. Some muscle spasm is noted in the overlying musculature. STRENGTH - noted to be 5 out of 5 all muscle groups bilateral lower extremities including muscles involving hip flexion and abduction, knee flexion and extension, as well as foot dorsiflexion and plantarflexion. No notable atrophy, fasciculations or spasm. SENSORY - No notable sensory deficits in the bilateral lower extremities to touch or pinprick in all dermatomal distributions. Straight Leg Raise is negative bilaterally. Tenderness to palpation is noted over the Right SacroIliac Joint: Fabere sign (Ko's Test) is significantly positive, as is compression and distraction of the sacroiliac joints, which is consistent with some of the patient's normal pain. Gait is normal. Assessment/Treatment Plan: Celi was seen today for back pain. Diagnoses and all orders for this visit: Lumbar stenosis with neurogenic claudication Disorder of sacrum Unspecified mononeuropathy of bilateral lower limbs Encounter for long-term opiate analgesic use - Benzodiazepine; Future - Cancel: Unlisted Lab Test; Future Continue Percocet 5/325 mg 1 tablet daily PRN and Gabapentin 300 mg TID Urine Drug Screen - To monitor the safety of chronic medication therapy, we will order a Urine Drug Screen. This screenwill test for illegal substances as well as prescription medications that we are providing to the patient. As part of our medication policy and contract, the patient has agreed to use only the medications provided by our office in the manner recommended and any deviation of that use can result in discontinuation of the medications from our clinic. Monitor Follow up 3 months The medications I have prescribed have been reviewed for medication interactions/contraindications and/or for upcoming procedures: continue current medication regimen without any changes. DISCUSSION: Treatment options discussed with patient and all questions answered to patient's satisfaction. Discussed the rules and regulations surrounding prescription of opioids and compliance at length. Failure to follow the rules and regulation will result in tapering and discontinuation of medications if applicable. The patient has been instructed as to the type of medication prescribed alongwith directions for use. Potential side effects have been discussed, along with risks and benefits of taking this medication. (S)he was instructed as to what to do if (s)he experiences side effects, including when to discontinue the medication. (S)he was advised to call this office in this event. Also discussed at length safety and security of RX and medications. Due to the high risk nature of this patient's pain medication regimen, frequent office visit refill appointments (every 1-3 months) are medically necessary to monitor for an addiction disorder. Prescribed medication that requires intensive monitoring for toxicity Percocet and Gabapentin. OARRS and most recent UDS were reviewed, discussed and appropriate for medications prescribed. Percocet pill count completed at today's office visit. Dose: 5-325 x1 Daily Quantity Dispensed 30 Quantity Remaining 21 Fill date on prescription bottle 01/22/24 appropriate Patient educated to bring medication to every office visit. At this time it does appear that the patient s pain is under adequate control with conservative care. It is felt that we should continue this approach and continue to monitor these symptoms and address them again in the future if they become more problematic. This approach was discussed with the patient and they are in agreement. The spine model was demonstrated and Xray and MRI was reviewed and used to explain the condition. Chronic conditions not treated during this visit that affected my overall medical decision making: Obesity, Anxiety and Depression OARRS: Reviewed. Scribe Statement: Scribed for and in the presence of VIDAL BARRIENTOS PA-C by Nydia Golden CNA. Provider Statement: I, VIDAL BARRIENTOS PA-C, personally performed the services described in the documentation, as scribed by Nydia Golden CNA in my presence, and it is both accurate and complete. Nydia Golden CNA 02/02/24 1455 Vidal Barrientos PA-C 02/07/24 1019 documented in this encounterOhio[facility]03-11-2024 NoteEntered by Maribell Arias LPN on January 31, 2024 09:48:30 EDT From: Maribell Arias LPN To: [facility] Sent: 01/31/2024 09:48:30 EDT Subject: Medication Management Submitted: Complete:omeprazole (omeprazole 40 mg oral delayed release capsule) Signed by Maribell Arias LPN 01/31/2024 09:48:00 EDT Approved with modifications: omeprazole (OMEPRAZOLE DR CAPS 40MG) TAKE 1 CAPSULE DAILY Qty: 90 cap(s) Days Supply: 0 Refills: 3 Substitutions Allowed Route To Pharmacy - [facility] Signed by Maribell Arias LPN From: [facility] To: Gracia Villa DO, DO Sent: January 31, 2024 12:18:06 AM CDT Subject: Medication Management Due: February 01, 2024 12:08:15 AM CDT On Hold Pending Signature Drug: omeprazole (omeprazole 40 mg oral delayed release capsule), TAKE 1 CAPSULE DAILY Quantity: 90 cap(s) Days Supply: 0 Refills: 3 Substitutions Allowed Notes from Pharmacy: Dispensed Drug: omeprazole (omeprazole 40 mg oral delayed release capsule), TAKE 1 CAPSULE DAILY Quantity: 90 cap(s) Days Supply: 0 Refills: 3 Substitutions [id number] Miscellaneous Notes* Telephone Encounter - Halima Rider RN - 01/27/2024 11:08 AM EST Last Office Visit: 11/03/2023 Next Office Visit: 02/02/2024 Last Urine Drug Screen: Lab Results Component Value Date BENZOSCRN Negative 05/12/2023 OARRS [facility] Note* Telephone Encounter - Halima Rider RN - 01/27/2024 11:08 AM EST Last Office Visit: 11/03/2023 Next Office Visit: 02/02/2024 Last Urine Drug Screen: Lab Results Component Value Date BENZOSCRN Negative 05/12/2023 OARRS appropriate [facility]-28[facility] Miscellaneous Notes* Telephone Encounter - Sandra De Oliveira RN - 01/19/2024 10:16 AM EST Last Office Visit: 11/03/2023 Next Office Visit: 02/02/2024 Last Urine Drug Screen: Lab Results Component Value Date BENZOSCRN Negative 05/12/2023 OARRS [facility] [id number] Telephone encounter Note* Telephone Encounter - Sandra De Oliveira RN - 01/19/2024 10:16 AM EST Last Office Visit: 11/03/2023 Next Office Visit: 02/02/2024 Last Urine Drug Screen: Lab Results Component Value Date BENZOSCRN Negative 05/12/2023 OARRS appropriate [facility] [id number] NoteEntered by MARU MARMOLEJO on January 17, 2024 08:38:21 EST From: MARU MARMOLEJO To: [facility] Sent: 01/17/2024 08:38:21 EST Subject: Medication Management Submitted: Complete:metoprolol (Metoprolol Succinate ER 25 mg oral tablet, extended release) Signed by MARU MARMOLEJO 01/17/2024 08:38:00 EST Approved with modifications: metoprolol (METOPROLOL SUCCINATE ER TABS 25MG) TAKE 1 TABLET DAILY Qty: 90 tab(s) Days Supply: 0 Refills: 3 Substitutions Allowed Route To Pharmacy - [facility] Signed by MARU MARMOLEJO From: [facility] To: Gracia Villa DO, DO Sent: January 17, 2024 12:18:06 AM MANAGER STATISTICAL PROGRAMMING Subject: Medication Management Due: January 18, 2024 12:09:18 AM MANAGER STATISTICAL PROGRAMMING On Hold Pending Signature Drug: metoprolol (Metoprolol Succinate ER 25 mg oral tablet, extended release), TAKE 1 TABLET DAILY Quantity: 90 tab(s) Days Supply: 0 Refills: 3 Substitutions Allowed Notes from Pharmacy: Dispensed Drug: metoprolol (Metoprolol Succinate ER 25 mg oral tablet, extended release), TAKE 1 TABLET DAILY Quantity: 90 tab(s) Days Supply: 0 Refills: 3 Substitutions [id number] Miscellaneous Notes* Telephone Encounter - Halima Rider RN - 12/13/2023 10:35 AM EST Last Office Visit: 11/03/2023 Next Office Visit: 02/02/2024 Last Urine Drug Screen: Lab Results Component Value Date BENZOSCRN Negative 05/12/2023 OARRS appropriate [facility] Telephone encounter Note* Telephone Encounter - Halima Rider RN - 12/13/2023 10:35 AM EST Last Office Visit: 11/03/2023 Next Office Visit: 02/02/2024 Last Urine Drug Screen: Lab Results Component Value Date BENZOSCRN Negative 05/12/2023 OARRS appropriate [facility] Diagnosis Lumbar stenosis without neurogenic claudication [facility] Diagnosis Lumbar stenosis with neurogenic claudication- Primary Disorder of sacrum Disorders of sacrum Unspecified mononeuropathy of bilateral lower limbs Encounter for long-term opiate analgesic use Encounter for long-term (current) use of other medications documented [facility] this encounter [facility] noteNo assessment information available [facility] Work Phone: Evaluation note* Diagnosis Lumbar stenosis without neurogenic claudication [facility]* Diagnosis Trochanteric bursitis of both hips- Primary Lumbar stenosis with neurogenic claudication Lumbosacral spondylosis without myelopathy Encounter for long-term opiate analgesic use Encounter for long-term (current) use of other medications Lumbar stenosis with neurogenic claudication- Primary Lumbar stenosis with neurogenic claudication documented [facility] this [facility] Author Diana Wiggins [facility] Note Date/Time December 07, 2024 9 :23am [facility] ENTER [address] [place] [address] Gastroenterology H&P Signed Patient: Celi Gerardo MR#: [id number] : 1945 Acct:[id number] Age/Sex: 79 / F Adm Date: 5 Loc: Room: Type: [facility] Attending Dr: Diana Wiggins DO Copies to: DO Gracia Rosales DO~ Date of Service: 12/07/2024 HISTORY & PHYSICAL: Patient's history with special attention to the cardiovascular, pulmonary systems and the current problem was reviewed with the patient immediately prior to the procedure. Present medications and doses reviewed in the EMR. Allergies and pertinent laboratory tests were also reviewedat this time in the EMR. The physical examination, as below, was then performed. Indication, assessment and HPI: 79-year-old female who presents for EGD for dysphagia, history of hiatal hernia status post repair. Family history of GI malignancy? No PHYSICAL EXAMINATION General appearance: cooperative, NAD Skin: No jaundice, no rash or lesions Head: NCAT Eyes: Anicteric Neck: Supple Lungs: Normal respiratory effort, no use of accessory muscles Abdomen: Soft, nondistended Neuro: No focal deficits, Ox3. REVIEW OF SYSTEMS Constitutional: Denies malaise, fevers Cardiovascular: Denies chest pain, palpitations Respiratory: Denies shortness of breath, wheezing Gastrointestinal: As per HPI Genitourinary: Denies dysuria, polyuria Musculoskeletal: Denies joint swelling, joint stiffness Neurological: Denies confusion, numbness, tingling Endocrine: Denies fatigue Written informed consent obtained from the patient. Risks (including but not limited to perforation, infection, bloating, bleeding, need for emergent surgeryand loss of life), benefits and alternatives explained and questions answered. The patient verbalized understanding. Based on history patient is an appropriate candidate for the procedure. Diana Wiggins DO Present medication and doses reviewed in the EMR Documented By: Diana Wiggins DO 12/07/24 0922 Signed By: <Electronically signed by Diana Wiggins DO> 12/07/24 0923 [facility] Work Phone: InstructionsNot on filedocumented in this encounter [facility] filedocumented in this encounter [facility]InstructionsNot on filedocumented in this encounter [facility] Summary Purpose Family History No Family History Records Found Relationship Condition Age at Onset Recorded Date/T palma sister Malignant neoplasm Unknown Malignant neoplasm of throat Unknown brother Malignant neoplasm of urinary bladder Unk nown father Myocardial infarction Unknown mother Cerebrovascular accident (CVA) Unknown Advance Directives No Advanced Directives Records FoundLatest Code Status on File Code Status Date Activated Date Inactivated Comments Full Code 08/23/2020 9:29 AM 08/25/2020 3:50 PM Advance Directive Response Recorded Date/ Time Advance Directives No July 1:47pm Date Activated Date Inactivated Comments 08/23/2020 9:29 AM 08/25/2020 3:50 PM Date Activated Date Inactivated Comments 08/23/2020 9:29 AM 08/25/2020 3:50 PM Advance Directive Response Recorded Date/ Time Advance Directives No July 12:47pm Chief Complaint and Reason for Visit Chief Complaint s09.90xd r51.9 Chief Complaint Admit Date Refer: esophageal stricture/ hiatal mega ia November 23, 2024 12:26pm Chief Complaint Admit Date Refer: esophageal stricture/ hiatal mega ia November 23, 2024 12:26pm Dysphagia December 07, 2024 9 :13am Dysphagia December 07, 2024 9 :23am Reason for Visit Admit Date Dysphagia November 23, 2024 12 :26pm History of repair of hiatal hernia Janmaurilio ry 2024 12:26pm Chief Complaint Admit Date Refer: esophageal stricture/ hiatal mega ia November 23, 2024 12:26pm Dysphagia December 07, 2024 9 :13am Dysphagia December 07, 2024 9 :23am R13.10 Z98.890 Z87.19 December 12, 2024 1:59pm Additional Source Comments INFORMATION SOURCE (unrecogn ized section and content) DATE CREATED AUTHOR 05/13/2018 [facility] DATE CREATED AUTHOR AUTHOR'S ORGANIZ ATION 08/21/2021 [facility] DATE CREATED AUTHOR AUTHOR'S ORGANIZ ATION 05/12/2024 [facility] EPIC DATE CREATED AUTHOR AUTHOR'S ORGANIZ ATION 08/07/2024 [facility] DATE CREATED AUTHOR AUTHOR'S ORGANIZ ATION 12/10/2024 [facility] DATE CREATED AUTHOR AUTHOR'S ORGANIZ ATION 12/12/2024 [facility] DATE CREATED AUTHOR AUTHOR'S ORGANIZ ATION 12/16/2024 [facility] Reason for Visit (unrecogniz ed section and content) Reason Onset Date Comments Med Refill 12/13/2023 Reason Onset Date Comments Med Refill 01/19/2024 Reason Onset Date Comments Med Refill 01/27/2024 Reason Comments Back Pain Reason Onset Date Comments Med Refill 08/31/2024 Reason Onset Date Comments Med Refill 10/16/2024 Reason Comments Back Pain Care Teams (unrecognized sec tion and content) Component Assembler Supervisor Relationship Specialty Start Date End Date Gracia Villa DO [address] [id number] PCP - General Internal Medicine 12/24/17 Team Status: Active Member Role Status Dates Gracia Villa DO Primary Care Provider Active Team Status: Inactive Member Role Status Dates Gracia Villa DO Primary Care Provider Active Start: March 21, 2024 End: March 21, 2024 Lety Barrientos [employer] Attending Provider Active Start: March 21, 2024 End: March 21, 2024 Component Assembler Supervisor Relationship Specialty Start Date End Date Gracia Villa DO PCP - General Internal Medicine 12/24/17 Component Assembler Supervisor Relationship Specialty Start Date End Date Gracia Villa DO PCP - General Internal Medicine 12/24/17 Team Status: Inactive Member Role Status Dates Gracia Villa DO Primary Care Provider Active Start: November 23, 2024 End: November 23, 2024 Diana L Ly , DO Attending Provider Active St art: November 23, 2024 End: November 23, 2024 Team Status: Inactive Member Role Status Dates Gracia Villa , Primary Care Provider Active Start: December 07, 2024 End: December 07, 2024 Diana Garay Ly , DO Attending Provider Active St art: December 07, 2024 End: December 07, 2024 Team Status: Active Member Role Status Dates Gracia Villa , DO Primary Care Provider Active Start: December 07, 2024 Diana Jarrod Ly , DO Attending Provider, Other Provider Active Start: December 07, 2024 Team Status: Inactive Member Role Status Dates Gracia Villa , DO Primary Care Provider Active Start: December 12, 2024 End: December 12, 2024 Diana Jarrod Ly , DO Attending Provider Active St art: December 12, 2024 End: December 12, 2024 Goals (unrecognized section and content) Goals may be documented in a n alternate sectionGoals may be documented in an alternate section FOR RECORDS PERTAINING TO PATIENTS WHO ARE OR HAVE BEEN ENROLLED IN A CHEMICAL DEPENDENCY/SUBSTANCEABUSE PROGRAM, SOME INFORMATION MAY BE OMITTED. This clinical summary was aggregated from multiple sources. Caution should be exercised in using it in the provision of clinical care. This summary normalizes information from multiple sources, and as a consequence, information in this document may materially change the coding, format and clinical context of patient data. In addition, data may be omitted in some cases. CLINICAL DECISIONS SHOULD BE BASED ON THE PRIMARY CLINICAL RECORDS. [facility] [employer] [facility]. provides no warranty or guarantee of the accuracy or completeness of information in this document.
--- NOTE | 2024-12-19 12:14 | ED.GENADUL1 ---
HPI HPI - General Adult General Chief complaint: Abdominal Pain Stated complaint: DIARRHEA, CHILLS, ABDOMINAL PAIN, WEAKNESS Time Seen by Provider: 12/19/24 12:07 Source: patient Mode of arrival: walk-in Limitations: no limitations History of Present Illness HPI narrative: 79-year-old female presents to the emergency department for not feeling well. She has been having diarrhea for a week. It started shortly after having her esophagus dilated and having upper endoscopy and esophagram. No hematochezia. She has been nauseous but no vomiting and has not had a fever. She feels weak. Related Data Home Medications ?Medication ?Instructions ?Recorded ?Confirmed aspirin 81 mg tablet,delayed 81 mg PO DAILY 10/31/23 10/31/23 release (Adult Aspirin Regimen) atorvastatin 80 mg tablet 80 mg PO DAILY 10/31/23 10/31/23 ezetimibe 10 mg tablet 10 mg PO DAILY 10/31/23 10/31/23 fluoxetine 20 mg capsule 20 mg PO DAILY 10/31/23 10/31/23 gabapentin 300 mg capsule 300 mg PO Q8H 10/31/23 10/31/23 isosorbide mononitrate 30 mg 30 mg PO DAILY 10/31/23 10/31/23 tablet,extended release 24 hr levothyroxine 50 mcg tablet 50 mcg PO DAILY 10/31/23 10/31/23 (Synthroid) metoprolol succinate 25 mg 25 mg PO DAILY 10/31/23 10/31/23 tablet,extended release 24 hr omeprazole 40 mg capsule,delayed 40 mg PO DAILY 10/31/23 10/31/23 release oxycodone-acetaminophen 5 mg-325 1 tab PO DAILY 10/31/23 10/31/23 mg tablet quetiapine 25 mg tablet 25 mg PO DAILY 10/31/23 10/31/23 Allergies Allergy/AdvReac Type Severity Reaction Status Date / Time meperidine (From Demerol) Allergy Hives Verified 12/19/24 11:53 acetaminophen (From [place]) AdvReac Confusion Verified 12/19/24 11:53 clarithromycin (From Biaxin) AdvReac Nausea Verified 12/19/24 11:53 clindamycin AdvReac c-diff Verified 12/19/24 11:53 hydrocodone (From [place]) AdvReac Confusion Verified 12/19/24 11:53 Opioid HPI Opioid Management Most Recent Opioid Data: No Data to Display Review of Systems ROS Narrative A ten point review of systems is negative except as noted above. PFSH PFSH Social History Smoking status: Former smoker Little interest or pleasure in doing things: not at all Feeling down, depressed, or hopeless: not at all Exam Narrative Exam Narrative: Nurses note and vital signs reviewed and patient is not hypoxic. General: The patient appears in no acute distress. She appears weak. Skin: Warm, dry, no pallor noted. There is no rash noted. Head: Normocephalic, atraumatic Eye: Normal conjunctiva, no drainage Ears, Nose, Mouth, and Throat: oral mucosa is slightly dry. Nares patent. Cardiovascular: Regular Rate and Rhythm Respiratory: Patient is in no distress, no accessory muscle use, lungs are clear to auscultation, no wheezing, rales or rhonchi GI: Soft and no apparent tenderness. Musculoskeletal: No joint swelling Neurological: A&O x4, normal speech Psychiatric: Cooperative Constitutional Vital Signs, click to edit/add: Last Vital Signs Temp 98.1 F 12/19/24 11:53 Pulse 68 12/19/24 14:11 Resp 16 12/19/24 14:11 BP 164/91 H 12/19/24 14:11 Pulse Ox 98 12/19/24 14:11 O2 Del Method Room Air 12/19/24 14:11 Course Vital Signs Vital signs: Vital Signs Temperature 98.1 F 12/19/24 11:53 Pulse Rate 70 12/19/24 11:53 Respiratory Rate 20 12/19/24 11:53 Blood Pressure 106/59 12/19/24 11:53 Pulse Oximetry 98 12/19/24 11:53 Oxygen Delivery Method Room Air 12/19/24 11:53 Temperature 98.1 F 12/19/24 11:53 Pulse Rate 68 12/19/24 14:11 Respiratory Rate 16 12/19/24 14:11 Blood Pressure 164/91 H 12/19/24 14:11 Pulse Oximetry 98 12/19/24 14:11 Oxygen Delivery Method Room Air 12/19/24 14:11 Medical Decision Making MDM Narrative Medical decision making narrative: Laboratory analysis is negative. She was unable to give us a stool specimen. The intent was to send it for culture and C. difficile. She does not appear to be dehydrated and her CAT scan of her abdomen is negative. Findings are discussed with the patient and her family and she is discharged home. Treatment diagnosis and follow-up were discussed with the patient. Differential Diagnosis Differential Diagnosis: Dehydration, food poisoning, viral gastroenteritis, C. difficile Lab Data Lab results reviewed: Yes I reviewed the patient's lab results Labs: Lab Results 12/19/24 12/19/24 Range/Units 12:26 13:17 WBC 5.9 (4.0-11.0) 10^3/uL RBC 3.89 L (4.20-5.40) 10^6/uL Hgb 12.3 (12.0-16.0) g/dL Hct 37.8 (36.0-48.0) % MCV 97.2 (81.0-99.0) fL MCH 31.6 (26.7-34.0) pg MCHC 32.5 (29.9-35.2) g/dL RDW 13.2 (11.0-15.0) % Plt Count 176 (150-450) 10^3/uL MPV 9.1 L (9.5-13.5) fL Neut % (Auto) 68.2 (43.0-75.0) % Lymph % (Auto) 23.0 (20.5-60.0) % [place] % (Auto) 7.0 (1.7-12.0) % Eos % (Auto) 1.4 (0.9-7.0) % Baso % (Auto) 0.2 (0.2-2.0) % Neut # (Auto) 4.0 (1.4-6.5) 10^3/uL Lymph # (Auto) 1.4 (1.2-3.8) 10^3/uL [place] # (Auto) 0.4 (0.3-0.8) 10^3/uL Eos # (Auto) 0.1 (0.0-0.7) 10^3/uL Baso # (Auto) 0.0 (0.0-0.1) 10^3/uL Abs Immat Gran (auto) 0.01 (0.00-0.03) 10^3/uL Imm/Tot Granulo (auto) 0.2 (0.0-0.5) % Sodium 136 (136-145) mmol/L Potassium 4.2 (3.5-5.1) mmol/L Chloride 104 (98-107) mmol/L Carbon Dioxide 22.1 (21.0-32.0) mmol/L Anion Gap 14.1 BUN 20.0 H (7.0-18.0) mg/dL Creatinine 1.59 H (0.55-1.02) mg/dL Est GFR ( Amer) 38 L (>=60 mL/min/1.73m^2) Est GFR (Non-Af Amer) 31 L (>=60 mL/min/1.73m^2) BUN/Creatinine Ratio 12.6 Glucose 101 (74-106) mg/dL Calcium 9.0 (8.5-10.1) mg/dL Urine Color Yellow (YELLOW) Urine Clarity Clear (CLEAR) Urine pH 6.0 (5.0-9.0) Ur Specific [place] 1.015 (1.005-1.025) Urine Protein Negative (NEG/TRACE) mg/dL Urine Glucose (UA) Negative (NEGATIVE) mg/dL Urine Ketones Negative (NEGATIVE) mg/dL Urine Occult Blood Negative (NEGATIVE) Urine Nitrite Negative (NEGATIVE) Urine Bilirubin Negative (NEGATIVE) Urine Urobilinogen 0.2 (0.2-1.0) EU/dL Ur Leukocyte Esterase Trace A (NEGATIVE) Urine RBC 0-2 (0-2) #/HPF Urine WBC 0-2 A (NONE SEEN) #/HPF Ur Squamous Epith Cells Rare (NONE/RARE) #/LPF Urine Crystals None seen (None Seen) #/HPF Urine Bacteria Trace A (NONE SEEN) #/HPF Urine Casts None seen (NONE SEEN) #/LPF Urine Mucus None seen (NONE SEEN) Ur Culture Indicated? No Imaging Data CT scan - abdomen: Radiologist's impression: ITS Impressions Abdomen/Pelvis CT 12/19/24 13:48 IMPRESSION: No CT evidence of colitis or diverticulitis 4.4 cm left adnexal cyst 3.1 cm infrarenal fusiform aortic aneurysm Electronically authenticated by: KYLIE MISHRA Date: 12/19/2024 14:51 Discharge Plan Discharge Chief Complaint: Abdominal Pain Clinical Impression: Diarrhea Patient Disposition: Home, Self-Care Time of Disposition Decision: 15:00 Condition: Good Mode of Transportation: Private Vehicle Prescriptions / Home Meds: No Action atorvastatin 80 mg tablet 80 mg PO DAILY ezetimibe 10 mg tablet 10 mg PO DAILY fluoxetine 20 mg capsule 20 mg PO DAILY gabapentin 300 mg capsule 300 mg PO Q8H isosorbide mononitrate 30 mg tablet extended release 24 hr 30 mg PO DAILY levothyroxine [Synthroid] 50 mcg tablet 50 mcg PO DAILY metoprolol succinate 25 mg tablet extended release 24 hr 25 mg PO DAILY omeprazole 40 mg capsule,delayed release(DR/EC) 40 mg PO DAILY oxycodone-acetaminophen 5-325 mg tablet 1 tab PO DAILY quetiapine 25 mg tablet 25 mg PO DAILY aspirin [Adult Aspirin Regimen] 81 mg tablet,delayed release (DR/EC) 81 mg PO DAILY Print Language: Portuguese Instructions: Acute Diarrhea (ED) Referrals: GRACIA HEMPHILL [Primary Care Provider] - 1 week
[2024-12-19 12:39] LABS: Basophils Percent Auto 0.2 % (0.2-2.0); Eosinophils Absolute Auto 0.1 10^3/uL (0.0-0.7); Eosinophils Percent Auto 1.4 % (0.9-7.0); Hematocrit 37.8 % (36.0-48.0); Hemoglobin 12.3 g/dL (12.0-16.0); Immature Granulocytes Abs Auto 0.01 10^3/uL (0.00-0.03); Immature Granulocytes Pct Auto 0.2 % (0.0-0.5); Lymphocytes Absolute Auto 1.4 10^3/uL (1.2-3.8); Mean Corpuscular HGB Conc 32.5 g/dL (29.9-35.2); Mean Corpuscular Hemoglobin 31.6 pg (26.7-34.0); Mean Corpuscular Volume 97.2 fL (81.0-99.0); Mean Platelet Volume 9.1 fL (9.5-13.5); Monocytes Absolute Auto 0.4 10^3/uL (0.3-0.8); Neutrophils Percent Auto 68.2 % (43.0-75.0); Platelet Count 176 10^3/uL (150-450); Red Blood Count 3.89 10^6/uL (4.20-5.40); Red Cell Distribution Width 13.2 % (11.0-15.0); White Blood Count 5.9 10^3/uL (4.0-11.0)
[2024-12-19 12:44] LABS: Anion Gap 14.1; BUN Creatinine Ratio 12.6; Carbon Dioxide 22.1 mmol/L (21.0-32.0); Chloride 104 mmol/L (98-107); Estimated GFR (African America 38 (>=60 mL/min/1.73m^2); Estimated GFR (Non-African Ame 31 (>=60 mL/min/1.73m^2); Glucose 101 mg/dL (74-106); Potassium 4.2 mmol/L (3.5-5.1); Sodium 136 mmol/L (136-145)
[2024-12-19] MEDS: 0.9 % SODIUM CHLORIDE 500 ML IV (12:45)
[2024-12-19] MEDS: ONDANSETRON PF 4 MG/2 ML VIAL IV (12:46)
--- NOTE | 2024-12-19 13:48 | CT_ITS ---
[address] [address] Patient Name: BROOKLYN GERARDO MRN: [facility]:[id number] date: 1945 Sex: F Assigned Patient Location: ER Current Patient Location: ER Accession/Order Number: [id number] Exam Date: 12/19/2024 14:20 Report Date: 12/19/2024 14:51 At the request of: FAUSTINA KHAN Procedure: CT abdomen pelvis w con EXAMINATION: CT abdomen pelvis w con HISTORY: Pain, diarrhea, rule out colitis COMPARISON: No relevant comparison available. TECHNIQUE: CT images were created with IV contrast. Axial, Coronal, and Sagittal images. Dose reduction techniques were achieved by using automated exposure control and/or adjustment of mA and/or kV according to patient size and/or use of iterative reconstruction technique. FINDINGS: LUNG BASES: No visible pulmonary or pleural disease. LIVER: No enlargement, atrophy, abnormal density, or significant focal lesion. BILIARY: No visible dilatation or calcification. PANCREAS: No lesion, fluid collection, ductal dilatation, or atrophy. SPLEEN: No enlargement or focal lesion. ADRENALS: No mass or enlargement. KIDNEYS: No mass, obstruction, or calcification. BOWEL/MESENTERY: Moderate colonic diverticulosis without evidence of acute diverticulitis AORTA/VASCULAR: Extensive calcific atherosclerosis. Fusiform aneurysm of the infrarenal aorta measuring 3.1 cm in diameter RETROPERITONEUM: No mass or adenopathy. LYMPH NODES: No adenopathy. URINARY BLADDER: No visible focal wall thickening, lesion, or calculus. PELVIC ORGANS: No visible mass. Pelvic organs appropriate for patient age. 4.4 cm left adnexal cyst ABDOMINAL WALL: No mass or hernia. BONES: No bony lesion or fracture. Rotatory dextrocurvature with degenerative changes OTHER: Negative. CT/CT abdomen pelvis w con IMPRESSION: No CT evidence of colitis or diverticulitis 4.4 cm left adnexal cyst 3.1 cm infrarenal fusiform aortic aneurysm Electronically authenticated by: KYLIE MISHRA Date: 12/19/2024 14:51
[2024-12-19 14:11] VITALS: BP 164/91; PULSE 68; O2SAT 98
[2024-12-19 14:11] LABS: Bilirubin Urine NEGATIVE (NEGATIVE); Blood Urine NEGATIVE (NEGATIVE); Clarity Urine CLEAR (CLEAR); Color Urine YELLOW (YELLOW); Glucose Urine UA NEGATIVE (NEGATIVE); Ketones Urine NEGATIVE (NEGATIVE); Leukocyte Esterase Urine TRACE (NEGATIVE); Nitrite Urine NEGATIVE (NEGATIVE); Protein Urine NEGATIVE (NEG/TRACE); Specific Gravity Urine 1.015 (1.005-1.025); Urobilinogen Urine 0.2 EU/dL (0.2-1.0)
[2024-12-19 14:17] LABS: Bacteria Urine TRACE #/HPF (NONE SEEN); RBC Urine 0-2 #/HPF (0-2); WBC Urine 0-2 #/HPF (NONE SEEN)
[2024-12-19 14:18] LABS: Cast Seen? NONE SEEN #/LPF (NONE SEEN); Crystals Seen? None Seen #/HPF (None Seen); Mucus Urine NONE SEEN (NONE SEEN); Squamous Epithelial Cell Urine RARE #/LPF (NONE/RARE); Urine Culture Indicated NO
--- NOTE | 2024-12-19 14:24 | PC.NURSE ---
pt in imaging at this time.
== END 2024-12-19 15:34 | disposition home or self-care (01) ==
PROVIDERS: Emergency Provider Emergency Medicine; PCP Internal Medicine
DX: R19.7 Diarrhea, unspecified (principal); Z87.891 Personal history of nicotine dependence; I71.9 Aortic aneurysm of unspecified site, without rupture; N83.202 Unspecified ovarian cyst, left side
CPT/HCPCS: 36415; 74177; 80048; 81001; 85025; 87045; 87046; 87427; 87493; 96374; 99285; J2405